=== PATIENT | male | born 1980 | race Caucasian/White ===

== ENCOUNTER 2017-11-15 13:15 | Emergency (ER) | payer OTHER ==
[2017-11-15] MEDS: ACETAMINOPHEN 500 MG TAB PO (16:01)
[2017-11-15] MEDS: CEFTRIAXONE 1 GM/50 ML (PMX) 50 ML IVPB (16:01)
[2017-11-15 16:07] LABS: ADD MAN DIFF? NO
[2017-11-15 16:12] LABS: ABNORMAL IP MESSAGE 1; BASOPHILS % 0.3 % (0.0-2.0); EOSINOPHILS % 0.1 % (0.0-7.0); HEMOGLOBIN 13.5 g/dl (14.0-18.0); LYMPHOCYTES # 0.5 10^3/ul (0.8-2.9); LYMPHOCYTES % 3.5 % (15.0-51.0); MEAN CORPUSCULAR HEMOGLOBIN 28.8 pg (29.0-33.0); MEAN CORPUSCULAR HGB CONC 33.8 g/dl (32.0-37.0); MEAN CORPUSCULAR VOLUME 85.3 fl (82.0-101.0); MEAN PLATELET VOLUME 9.6 fl (7.4-10.4); MONOCYTE # 0.6 10^3/ul (0.3-0.9); MONOCYTES % 4.6 % (0.0-11.0); NEUTROPHIL # 12.5 10^3/ul (1.6-7.5); NEUTROPHILS % 90.8 % (39.0-77.0); PLATELET COUNT 218 10^3/UL (140-415); POSITIVE DIFF @See below; RED BLOOD COUNT 4.69 10^6/ul (4.70-6.10); RED CELL DISTRIBUTION WIDTH 14.8 % (11.5-14.5)
[2017-11-15 16:12] LABS: WHITE BLOOD COUNT 13.8 10^3/ul (4.8-10.8)
[2017-11-15 16:31] LABS: ANION GAP 20 (8-16); BLOOD UREA NITROGEN 53 mg/dl (7-20); CALCIUM 8.6 mg/dl (8.4-10.2); CARBON DIOXIDE 26 mmol/L (21-31); CHLORIDE 91 mmol/L (97-110); CREATININE 7.04 mg/dl (0.61-1.24); GLUCOSE 86 mg/dl (70-220); SODIUM 133 mmol/L (135-144)
[2017-11-15] MEDS: TRIMETHOPRIM/SULFAMETHOX (DS) TAB PO (17:05)
[2017-11-15] MEDS: SOD CHLORIDE 0.9% 1,000 ML IV (17:06)
== END 2017-11-15 18:24 | disposition home or self-care (01) ==
LOC: FTE 13:15
DX: L03.116 Cellulitis of left lower limb (principal)
CPT/HCPCS: 36415; 80048; 85025; 87040; 96374; 99284-25

== ENCOUNTER 2017-12-14 20:08 | Inpatient (IN) | payer OTHER ==
[2017-12-14] MEDS: SOD CHLORIDE 0.9% 250 ML IV ×2 (21:58→23:39)
[2017-12-14 22:11] LABS: ADD MAN DIFF? NO
[2017-12-14 22:13] LABS: WHITE BLOOD COUNT 5.7 10^3/ul (4.8-10.8)
[2017-12-14 22:13] LABS: ABNORMAL IP MESSAGE 1; BASOPHILS % 0.5 % (0.0-2.0); EOSINOPHILS # 0.3 10^3/ul (0.0-0.5); EOSINOPHILS % 4.8 % (0.0-7.0); HEMATOCRIT 39.5 % (42.0-52.0); HEMOGLOBIN 12.8 g/dl (14.0-18.0); LYMPHOCYTES # 0.4 10^3/ul (0.8-2.9); LYMPHOCYTES % 7.2 % (15.0-51.0); MEAN CORPUSCULAR HEMOGLOBIN 28.8 pg (29.0-33.0); MEAN CORPUSCULAR HGB CONC 32.4 g/dl (32.0-37.0); MEAN CORPUSCULAR VOLUME 88.8 fl (82.0-101.0); MEAN PLATELET VOLUME 9.6 fl (7.4-10.4); MONOCYTE # 0.4 10^3/ul (0.3-0.9); MONOCYTES % 6.9 % (0.0-11.0); NEUTROPHIL # 4.5 10^3/ul (1.6-7.5); NEUTROPHILS % 80.2 % (39.0-77.0); PLATELET COUNT 228 10^3/UL (140-415); POSITIVE DIFF @See below; RED BLOOD COUNT 4.45 10^6/ul (4.70-6.10); RED CELL DISTRIBUTION WIDTH 15.9 % (11.5-14.5)
[2017-12-14 22:28] LABS: INR 1.21; PROTIME 15.5 Sec (11.9-14.9); PT RATIO 1.2
[2017-12-14 22:29] LABS: LACTIC ACID 1.6 mmol/L (0.5-2.0)
[2017-12-14 22:29] LABS: PARTIAL THROMBOPLASTIN TIME 38.4 Sec (25.0-35.0)
[2017-12-14 22:31] LABS: ALANINE AMINOTRANSFERASE 24 IU/L (13-69); ALBUMIN/GLOBULIN RATIO 1.25; ALKALINE PHOSPHATASE 271 IU/L (42-121); ANION GAP 17 (8-16); ASPARTATE AMINO TRANSFERASE 21 IU/L (15-46); BILIRUBIN,INDIRECT 0.1 mg/dl (0-1.1); BILIRUBIN,TOTAL 0.1 mg/dl (0.2-1.3); BLOOD UREA NITROGEN 38 mg/dl (7-20); CALCIUM 8.7 mg/dl (8.4-10.2); CARBON DIOXIDE 27 mmol/L (21-31); CHLORIDE 97 mmol/L (97-110); GLUCOSE 90 mg/dl (70-220); SODIUM 137 mmol/L (135-144); TOTAL PROTEIN 5.4 g/dl (6.1-8.1)
[2017-12-14 22:42] LABS: TROPONIN-I 0.031 ng/ml (0.00-0.12)
[2017-12-14] MEDS: CEFTRIAXONE 1 GM/50 ML (PMX) 50 ML IVPB (23:39)
[2017-12-15] MEDS ORDERED: NACL 0.9% 3 ML SYG IV
[2017-12-15] MEDS ORDERED: ONDANSETRON 4 MG INJ IV
[2017-12-15] MEDS ORDERED: ACETAMINOPHEN 325 MG TAB PO
[2017-12-15 00:14] LABS: LACTIC ACID 1.1 mmol/L (0.5-2.0)
[2017-12-15] MEDS: AZITHROMYCIN 500MG/NS (PMX) 250 ML IV (00:36)
[2017-12-15] MEDS: SOD CHLORIDE 0.9% 1,000 ML IV (00:36)
[2017-12-15 03:20] LABS: ADD MAN DIFF? NO
[2017-12-15 03:24] LABS: WHITE BLOOD COUNT 5.3 10^3/ul (4.8-10.8)
[2017-12-15 03:24] LABS: ABNORMAL IP MESSAGE 1; BASOPHILS % 0.7 % (0.0-2.0); EOSINOPHILS # 0.3 10^3/ul (0.0-0.5); EOSINOPHILS % 5.1 % (0.0-7.0); HEMOGLOBIN 12.3 g/dl (14.0-18.0); LYMPHOCYTES # 0.4 10^3/ul (0.8-2.9); LYMPHOCYTES % 7.3 % (15.0-51.0); MEAN CORPUSCULAR HEMOGLOBIN 28.8 pg (29.0-33.0); MEAN CORPUSCULAR HGB CONC 32.4 g/dl (32.0-37.0); MEAN PLATELET VOLUME 9.6 fl (7.4-10.4); MONOCYTE # 0.4 10^3/ul (0.3-0.9); MONOCYTES % 7.3 % (0.0-11.0); NEUTROPHIL # 4.2 10^3/ul (1.6-7.5); NEUTROPHILS % 79.2 % (39.0-77.0); PLATELET COUNT 214 10^3/UL (140-415); POSITIVE DIFF @See below; RED BLOOD COUNT 4.27 10^6/ul (4.70-6.10)
[2017-12-15 03:45] LABS: LACTIC ACID 1.2 mmol/L (0.5-2.0)
[2017-12-15 03:50] LABS: ALANINE AMINOTRANSFERASE 20 IU/L (13-69); ALBUMIN/GLOBULIN RATIO 1.15; ALKALINE PHOSPHATASE 262 IU/L (42-121); ANION GAP 21 (8-16); ASPARTATE AMINO TRANSFERASE 20 IU/L (15-46); BLOOD UREA NITROGEN 38 mg/dl (7-20); CALCIUM 8.4 mg/dl (8.4-10.2); CARBON DIOXIDE 21 mmol/L (21-31); CHLORIDE 101 mmol/L (97-110); CHOL/HDL RATIO 3.3 RATIO; CHOLESTEROL 114 mg/dl (100-200); CREATININE 6.39 mg/dl (0.61-1.24); GLUCOSE 110 mg/dl (70-220); HDL CHOLESTEROL 34 mg/dl (27-67); LDL CHOLESTEROL,CALCULATED 63 mg/dl; MAGNESIUM 2.2 mg/dl (1.7-2.5); POTASSIUM 3.9 mmol/L (3.5-5.1); SODIUM 139 mmol/L (135-144); TOTAL PROTEIN 5.6 g/dl (6.1-8.1); TRIGLYCERIDES 86 mg/dl (0-149)
[2017-12-15 04:04] LABS: HEMOGLOBIN A1C 5.4 % (0-5.9)
[2017-12-15] MEDS: PANTOPRAZOLE (EC) 40 MG TAB PO (06:14)
[2017-12-15] MEDS: PIPER-TAZO 2.25 GM (PMX) 50 ML IVPB (06:15)
[2017-12-15] MEDS: MULTIVIT/CA CARB/B CMPLX/FA TAB PO (08:27)
[2017-12-15] MEDS: ASPIRIN (EC) 81 MG TAB PO (08:27)
[2017-12-15] MEDS: SEVELAMER 800 MG TAB PO ×2 (12:09→17:58)
[2017-12-15] MEDS: ALBUMIN HUMAN 25% 100 ML IV (18:03)
[2017-12-15 19:50] LABS: HEPATITIS B SURFACE ANTIGEN NEGATIVE (NEGATIVE)
[2017-12-15] MEDS ORDERED: CEFTRIAXONE 1 GM/50 ML (PMX) 50 ML IVPB (22:00)
[2017-12-15] MEDS: ATORVASTATIN 40 MG TAB PO (22:54)
[2017-12-15] MEDS: CEFTRIAXONE 1 GM/50 ML (PMX) 50 ML IVPB (22:54)
[2017-12-15] MEDS: DOXYCYCLINE 100 MG TAB PO (22:54)
[2017-12-15] MEDS: CINACALCET 30 MG TAB PO (22:54)
[2017-12-15] MEDS ORDERED: AZITHROMYCIN 500MG/NS (PMX) 250 ML IVPB (23:00)
[2017-12-16] MEDS: PANTOPRAZOLE (EC) 40 MG TAB PO (06:36)
[2017-12-16 07:37] LABS: ADD MAN DIFF? NO
[2017-12-16 07:41] LABS: ABNORMAL IP MESSAGE 1; BASOPHILS % 0.6 % (0.0-2.0); EOSINOPHILS # 0.3 10^3/ul (0.0-0.5); EOSINOPHILS % 4.6 % (0.0-7.0); HEMATOCRIT 39.1 % (42.0-52.0); HEMOGLOBIN 12.6 g/dl (14.0-18.0); LYMPHOCYTES # 0.4 10^3/ul (0.8-2.9); MEAN CORPUSCULAR HEMOGLOBIN 28.8 pg (29.0-33.0); MEAN CORPUSCULAR HGB CONC 32.2 g/dl (32.0-37.0); MEAN CORPUSCULAR VOLUME 89.5 fl (82.0-101.0); MEAN PLATELET VOLUME 9.9 fl (7.4-10.4); MONOCYTE # 0.5 10^3/ul (0.3-0.9); MONOCYTES % 7.3 % (0.0-11.0); NEUTROPHIL # 5.6 10^3/ul (1.6-7.5); NEUTROPHILS % 81.2 % (39.0-77.0); PLATELET COUNT 232 10^3/UL (140-415); POSITIVE DIFF @See below; RED BLOOD COUNT 4.37 10^6/ul (4.70-6.10); RED CELL DISTRIBUTION WIDTH 16.4 % (11.5-14.5)
[2017-12-16 07:41] LABS: WHITE BLOOD COUNT 6.9 10^3/ul (4.8-10.8)
[2017-12-16 08:00] LABS: ANION GAP 17 (8-16); BLOOD UREA NITROGEN 31 mg/dl (7-20); CALCIUM 8.5 mg/dl (8.4-10.2); CARBON DIOXIDE 25 mmol/L (21-31); CHLORIDE 100 mmol/L (97-110); CREATININE 5.52 mg/dl (0.61-1.24); GLUCOSE 98 mg/dl (70-220); MAGNESIUM 2.1 mg/dl (1.7-2.5); POTASSIUM 4.2 mmol/L (3.5-5.1); SODIUM 138 mmol/L (135-144)
[2017-12-16] MEDS: SEVELAMER 800 MG TAB PO ×3 (08:00→18:01)
[2017-12-16 08:35] LABS: PHOSPHORUS 5.8 mg/dl (2.5-4.9)
[2017-12-16] MEDS: ASPIRIN 325 MG TAB PO (08:48)
[2017-12-16] MEDS: MULTIVIT/CA CARB/B CMPLX/FA TAB PO (08:48)
[2017-12-16] MEDS: DOXYCYCLINE 100 MG TAB PO ×2 (08:48→21:51)
[2017-12-16] MEDS: CEFTRIAXONE 1 GM/50 ML (PMX) 50 ML IVPB (21:51)
[2017-12-16] MEDS: CINACALCET 30 MG TAB PO (21:51)
[2017-12-16] MEDS: ATORVASTATIN 40 MG TAB PO (21:51)
[2017-12-16] MEDS: ACETAMINOPHEN 325 MG TAB PO (21:54)
[2017-12-17] MEDS: PANTOPRAZOLE (EC) 40 MG TAB PO (06:09)
[2017-12-17 06:48] LABS: ADD MAN DIFF? NO
[2017-12-17 06:52] LABS: WHITE BLOOD COUNT 6.2 10^3/ul (4.8-10.8)
[2017-12-17 06:52] LABS: ABNORMAL IP MESSAGE 1; BASOPHILS % 0.6 % (0.0-2.0); EOSINOPHILS # 0.4 10^3/ul (0.0-0.5); EOSINOPHILS % 5.8 % (0.0-7.0); HEMATOCRIT 39.9 % (42.0-52.0); HEMOGLOBIN 12.9 g/dl (14.0-18.0); LYMPHOCYTES # 0.5 10^3/ul (0.8-2.9); LYMPHOCYTES % 8.1 % (15.0-51.0); MEAN CORPUSCULAR HEMOGLOBIN 28.7 pg (29.0-33.0); MEAN CORPUSCULAR HGB CONC 32.3 g/dl (32.0-37.0); MEAN CORPUSCULAR VOLUME 88.9 fl (82.0-101.0); MEAN PLATELET VOLUME 9.4 fl (7.4-10.4); MONOCYTE # 0.5 10^3/ul (0.3-0.9); MONOCYTES % 7.8 % (0.0-11.0); NEUTROPHIL # 4.8 10^3/ul (1.6-7.5); NEUTROPHILS % 77.4 % (39.0-77.0); PLATELET COUNT 205 10^3/UL (140-415); POSITIVE DIFF @See below; RED BLOOD COUNT 4.49 10^6/ul (4.70-6.10); RED CELL DISTRIBUTION WIDTH 16.5 % (11.5-14.5)
[2017-12-17 07:12] LABS: PHOSPHORUS 4.9 mg/dl (2.5-4.9)
[2017-12-17 07:17] LABS: ANION GAP 15 (8-16); BLOOD UREA NITROGEN 27 mg/dl (7-20); CALCIUM 8.4 mg/dl (8.4-10.2); CARBON DIOXIDE 27 mmol/L (21-31); CHLORIDE 99 mmol/L (97-110); CREATININE 4.91 mg/dl (0.61-1.24); GLUCOSE 91 mg/dl (70-220); MAGNESIUM 2.1 mg/dl (1.7-2.5); POTASSIUM 4.1 mmol/L (3.5-5.1); SODIUM 137 mmol/L (135-144)
[2017-12-17] MEDS: DOXYCYCLINE 100 MG TAB PO ×2 (09:05→21:17)
[2017-12-17] MEDS: MULTIVIT/CA CARB/B CMPLX/FA TAB PO (09:05)
[2017-12-17] MEDS: ASPIRIN 325 MG TAB PO (09:05)
[2017-12-17] MEDS: SEVELAMER 800 MG TAB PO ×3 (09:05→17:21)
[2017-12-17] MEDS: ATORVASTATIN 40 MG TAB PO (21:16)
[2017-12-17] MEDS: CINACALCET 30 MG TAB PO (21:17)
[2017-12-17] MEDS: CEFTRIAXONE 1 GM/50 ML (PMX) 50 ML IVPB (22:19)
[2017-12-18] MEDS: PANTOPRAZOLE (EC) 40 MG TAB PO (06:09)
[2017-12-18 07:08] LABS: PHOSPHORUS 5.7 mg/dl (2.5-4.9)
[2017-12-18] MEDS: ASPIRIN 325 MG TAB PO (08:37)
[2017-12-18] MEDS: MULTIVIT/CA CARB/B CMPLX/FA TAB PO (08:37)
[2017-12-18] MEDS: DOXYCYCLINE 100 MG TAB PO ×2 (08:37→21:32)
[2017-12-18] MEDS: SEVELAMER 800 MG TAB PO ×3 (08:37→16:28)
[2017-12-18] MEDS: DIGOXIN 500 MCG INJ IV (16:28)
[2017-12-18 19:10] LABS: CREATINE KINASE 91 IU/L (23-200)
[2017-12-18 19:23] LABS: CK INDEX 5.7
[2017-12-18 19:26] LABS: TROPONIN-I < 0.012 ng/ml (0.00-0.12)
[2017-12-18] MEDS: ATORVASTATIN 40 MG TAB PO (21:32)
[2017-12-18] MEDS: CINACALCET 30 MG TAB PO (21:32)
[2017-12-18] MEDS: AL HYDROX/MG HYDROX/SIMETH 30 ML CUP PO (21:36)
[2017-12-18] MEDS: CEFTRIAXONE 1 GM/50 ML (PMX) 50 ML IVPB (23:44)
[2017-12-19 01:09] LABS: CREATINE KINASE 84 IU/L (23-200)
[2017-12-19 01:23] LABS: CK INDEX 5.6; TROPONIN-I 0.016 ng/ml (0.00-0.12)
[2017-12-19 01:24] LABS: CK-MB 4.69 ng/ml (0.0-2.4)
[2017-12-19] MEDS: PANTOPRAZOLE (EC) 40 MG TAB PO (06:23)
[2017-12-19 07:33] LABS: CHOLESTEROL 86 mg/dl (100-200)
[2017-12-19 07:33] LABS: CHOL/HDL RATIO 2.3 RATIO; HDL CHOLESTEROL 36 mg/dl (27-67); LDL CHOLESTEROL,CALCULATED 39 mg/dl; TRIGLYCERIDES 56 mg/dl (0-149)
[2017-12-19 07:34] LABS: PHOSPHORUS 5.5 mg/dl (2.5-4.9)
[2017-12-19] MEDS: SEVELAMER 800 MG TAB PO ×3 (07:47→17:49)
[2017-12-19] MEDS: ASPIRIN 325 MG TAB PO (09:00)
[2017-12-19] MEDS: MULTIVIT/CA CARB/B CMPLX/FA TAB PO (09:00)
[2017-12-19] MEDS: DOXYCYCLINE 100 MG TAB PO ×2 (09:00→20:09)
[2017-12-19] MEDS: LISINOPRIL 5 MG TAB PO (09:00)
[2017-12-19] MEDS: REGADENOSON 0.4 MG/5 ML SYG ×2 (11:03→11:25)
[2017-12-19] MEDS: ATORVASTATIN 40 MG TAB PO (20:09)
[2017-12-19] MEDS: AL HYDROX/MG HYDROX/SIMETH 30 ML CUP PO (20:09)
[2017-12-19] MEDS: CINACALCET 30 MG TAB PO (20:09)
[2017-12-19] MEDS: CEFTRIAXONE 1 GM/50 ML (PMX) 50 ML IVPB (23:23)
[2017-12-20] MEDS: PANTOPRAZOLE (EC) 40 MG TAB PO (06:31)
[2017-12-20] MEDS: ASPIRIN 325 MG TAB PO (08:07)
[2017-12-20] MEDS: SEVELAMER 800 MG TAB PO (08:07)
[2017-12-20] MEDS: DOXYCYCLINE 100 MG TAB PO (08:07)
[2017-12-20] MEDS: MULTIVIT/CA CARB/B CMPLX/FA TAB PO (08:08)
[2017-12-20] MEDS: LISINOPRIL 5 MG TAB PO (08:08)
[2017-12-20 08:21] LABS: ADD MAN DIFF? NO
[2017-12-20 08:29] LABS: WHITE BLOOD COUNT 6.7 10^3/ul (4.8-10.8)
[2017-12-20 08:30] LABS: ABNORMAL IP MESSAGE 1; BASOPHILS % 0.4 % (0.0-2.0); EOSINOPHILS # 0.3 10^3/ul (0.0-0.5); EOSINOPHILS % 4.3 % (0.0-7.0); HEMATOCRIT 41.1 % (42.0-52.0); HEMOGLOBIN 13.2 g/dl (14.0-18.0); LYMPHOCYTES # 0.5 10^3/ul (0.8-2.9); LYMPHOCYTES % 7.6 % (15.0-51.0); MEAN CORPUSCULAR HEMOGLOBIN 28.3 pg (29.0-33.0); MEAN CORPUSCULAR HGB CONC 32.1 g/dl (32.0-37.0); MEAN CORPUSCULAR VOLUME 88.2 fl (82.0-101.0); MEAN PLATELET VOLUME 10.2 fl (7.4-10.4); MONOCYTE # 0.5 10^3/ul (0.3-0.9); MONOCYTES % 7.3 % (0.0-11.0); NEUTROPHIL # 5.4 10^3/ul (1.6-7.5); NEUTROPHILS % 80.3 % (39.0-77.0); PLATELET COUNT 190 10^3/UL (140-415); POSITIVE DIFF @See below; RED BLOOD COUNT 4.66 10^6/ul (4.70-6.10); RED CELL DISTRIBUTION WIDTH 16.3 % (11.5-14.5)
[2017-12-20 08:46] LABS: ANION GAP 22 (8-16); BLOOD UREA NITROGEN 42 mg/dl (7-20); CALCIUM 7.9 mg/dl (8.4-10.2); CARBON DIOXIDE 23 mmol/L (21-31); CHLORIDE 96 mmol/L (97-110); GLUCOSE 83 mg/dl (70-220); POTASSIUM 4.7 mmol/L (3.5-5.1); SODIUM 136 mmol/L (135-144)
[2017-12-20 08:50] LABS: PHOSPHORUS 5.2 mg/dl (2.5-4.9)
== END 2017-12-20 12:18 | disposition home or self-care (01) | DRG 193 ==
LOC: TEL 23:51 → E/R 20:08
PROC: 5A1D70Z Performance of Urinary Filtration, Intermittent, Less than 6 Hours Per Day (ICD-10-PCS; 2017-12-15)
PROC: 5A1D70Z Performance of Urinary Filtration, Intermittent, Less than 6 Hours Per Day (ICD-10-PCS; principal; 2017-12-18)
DX: J18.9 Pneumonia, unspecified organism (principal); N18.6 End stage renal disease; I12.0 Hypertensive chronic kidney disease with stage 5 chronic kidney disease or end stage renal disease; I42.9 Cardiomyopathy, unspecified; I95.9 Hypotension, unspecified; I48.91 Unspecified atrial fibrillation; Y95 Nosocomial condition; D64.9 Anemia, unspecified; R07.89 Other chest pain; Z99.2 Dependence on renal dialysis; Z79.82 Long term (current) use of aspirin
CPT/HCPCS: 36415; 71045; 71046; 78452; 80048; 80053; 80061; 82550; 82553; 83036; 83605; 83735; 84100; 84443; 84484; 85025; 85610; 85730; 86403; 87040; 87081; 87275; 87276; 87279; 87280; 87340; 90935; 93005; 93017; 93306; 96361; 96374; 96375; 99285-25

== ENCOUNTER 2018-05-20 13:42 | Inpatient (IN) | payer OTHER ==
[2018-05-20 14:21] LABS: ADD MAN DIFF? NO
[2018-05-20] MEDS: SOD CHLORIDE 0.9% 500 ML IV (14:21)
[2018-05-20 14:22] LABS: WHITE BLOOD COUNT 5.5 10^3/ul (4.8-10.8)
[2018-05-20 14:22] LABS: ABNORMAL IP MESSAGE 1; BASOPHILS % 0.5 % (0.0-2.0); EOSINOPHILS # 0.4 10^3/ul (0.0-0.5); EOSINOPHILS % 6.3 % (0.0-7.0); HEMATOCRIT 38.8 % (42.0-52.0); HEMOGLOBIN 12.9 g/dl (14.0-18.0); LYMPHOCYTES # 0.4 10^3/ul (0.8-2.9); LYMPHOCYTES % 6.7 % (15.0-51.0); MEAN CORPUSCULAR HEMOGLOBIN 29.9 pg (29.0-33.0); MEAN CORPUSCULAR HGB CONC 33.2 g/dl (32.0-37.0); MEAN CORPUSCULAR VOLUME 89.8 fl (82.0-101.0); MEAN PLATELET VOLUME 10.2 fl (7.4-10.4); MONOCYTE # 0.3 10^3/ul (0.3-0.9); MONOCYTES % 5.6 % (0.0-11.0); NEUTROPHIL # 4.4 10^3/ul (1.6-7.5); NEUTROPHILS % 80.5 % (39.0-77.0); PLATELET COUNT 286 10^3/UL (140-415); POSITIVE DIFF @See below; RED BLOOD COUNT 4.32 10^6/ul (4.70-6.10); RED CELL DISTRIBUTION WIDTH 14.6 % (11.5-14.5)
[2018-05-20] MEDS: SODIUM CHLORIDE 0.9% 1L BAG IV* (14:35)
[2018-05-20] MEDS: CEFEPIME 2GM/50 ML (PMX) 50 ML IVPB (14:37)
[2018-05-20 14:54] LABS: ANION GAP 19 (8-16); BLOOD UREA NITROGEN 51 mg/dl (7-20); CALCIUM 8.3 mg/dl (8.4-10.2); CARBON DIOXIDE 21 mmol/L (21-31); CHLORIDE 94 mmol/L (97-110); CREATININE 8.42 mg/dl (0.61-1.24); GLUCOSE 93 mg/dl (70-220); POTASSIUM 4.9 mmol/L (3.5-5.1); SODIUM 129 mmol/L (135-144)
[2018-05-20] MEDS ORDERED: NORepinephrine 8MG/250 ML (PMX 250 ML (15:15)
[2018-05-20] MEDS: VANCOMYCIN 1 GM (PMX) 250 ML IVPB (15:26)
[2018-05-20 15:45] LABS: PARTIAL THROMBOPLASTIN TIME 36.5 Sec (25.0-35.0)
[2018-05-20] MEDS: NORepinephrine 8MG/250 ML (PMX 250 ML IV (16:02)
[2018-05-20 17:12] LABS: LACTIC ACID 0.7 mmol/L (0.5-2.0)
[2018-05-20 17:12] LABS: ALANINE AMINOTRANSFERASE 27 IU/L (13-69); ALBUMIN 2.8 g/dl (3.3-4.9); ALKALINE PHOSPHATASE 291 IU/L (42-121); ASPARTATE AMINO TRANSFERASE 16 IU/L (15-46); BILIRUBIN,INDIRECT 0.1 mg/dl (0-1.1); BILIRUBIN,TOTAL 0.1 mg/dl (0.2-1.3); LIPASE 86 U/L (23-300); TOTAL PROTEIN 5.5 g/dl (6.1-8.1)
[2018-05-20] MEDS ORDERED: NACL 0.9% 3 ML SYG IV (19:00)
[2018-05-20 19:14] LABS: INR 1.27; PROTIME 16.1 Sec (11.9-14.9); PT RATIO 1.3
[2018-05-20 19:15] LABS: PARTIAL THROMBOPLASTIN TIME 36.1 Sec (25.0-35.0)
[2018-05-20 19:24] LABS: FREE T4 (FREE THYROXINE) 1.49 ng/dl (0.64-1.79)
[2018-05-20 19:52] LABS: B-TYPE NATRIURETIC PEPTIDE 106000 PG/ML (0-125)
[2018-05-20] MEDS ORDERED: PHENYLephrine 20MG IN 250 ML 250 ML IV (21:00)
[2018-05-20] MEDS: DOPamine-D5W 1.6 MG/ML 250 ML IV (21:23)
[2018-05-20] MEDS: CINACALCET 30 MG TAB PO (21:29)
[2018-05-20] MEDS: ATORVASTATIN 40 MG TAB PO (21:29)
[2018-05-21] MEDS: ONDANSETRON 4 MG INJ IV (00:04)
[2018-05-21] MEDS: morphine 4 MG/ML VIAL IV (00:05)
[2018-05-21] MEDS: NORepinephrine 8MG/250 ML (PMX 250 ML IV ×2 (00:51→11:54)
[2018-05-21 05:44] LABS: ADD MAN DIFF? NO
[2018-05-21 05:50] LABS: BASOPHILS % 0.6 % (0.0-2.0); EOSINOPHILS # 0.2 10^3/ul (0.0-0.5); EOSINOPHILS % 3.1 % (0.0-7.0); HEMATOCRIT 43.7 % (42.0-52.0); HEMOGLOBIN 14.3 g/dl (14.0-18.0); LYMPHOCYTES # 0.7 10^3/ul (0.8-2.9); LYMPHOCYTES % 9.6 % (15.0-51.0); MEAN CORPUSCULAR HEMOGLOBIN 29.9 pg (29.0-33.0); MEAN CORPUSCULAR HGB CONC 32.7 g/dl (32.0-37.0); MEAN CORPUSCULAR VOLUME 91.2 fl (82.0-101.0); MEAN PLATELET VOLUME 9.9 fl (7.4-10.4); MONOCYTE # 0.5 10^3/ul (0.3-0.9); MONOCYTES % 6.4 % (0.0-11.0); NEUTROPHIL # 5.7 10^3/ul (1.6-7.5); NEUTROPHILS % 79.9 % (39.0-77.0); NUCLEATED RED BLOOD CELLS% 0.3 /100WBC (0.0-0.0); PLATELET COUNT 377 10^3/UL (140-415); RED BLOOD COUNT 4.79 10^6/ul (4.70-6.10); RED CELL DISTRIBUTION WIDTH 15.2 % (11.5-14.5)
[2018-05-21 05:50] LABS: WHITE BLOOD COUNT 7.2 10^3/ul (4.8-10.8)
[2018-05-21 06:17] LABS: HEMOGLOBIN A1C 5.7 % (0-5.9)
[2018-05-21 06:22] LABS: ALBUMIN 3.3 g/dl (3.3-4.9); ALBUMIN/GLOBULIN RATIO 1.26; ALKALINE PHOSPHATASE 288 IU/L (42-121); ANION GAP 22 (8-16); ASPARTATE AMINO TRANSFERASE 15 IU/L (15-46); BILIRUBIN,INDIRECT 0.2 mg/dl (0-1.1); BILIRUBIN,TOTAL 0.2 mg/dl (0.2-1.3); BLOOD UREA NITROGEN 57 mg/dl (7-20); CALCIUM 8.8 mg/dl (8.4-10.2); CARBON DIOXIDE 17 mmol/L (21-31); CHLORIDE 97 mmol/L (97-110); CHOL/HDL RATIO 3.9 RATIO; CHOLESTEROL 118 mg/dl (100-200); CREATININE 8.75 mg/dl (0.61-1.24); GLUCOSE 109 mg/dl (70-220); HDL CHOLESTEROL 30 mg/dl (27-67); LDL CHOLESTEROL,CALCULATED 70 mg/dl; MAGNESIUM 2.2 mg/dl (1.7-2.5); PHOSPHORUS 8.4 mg/dl (2.5-4.9); SODIUM 130 mmol/L (135-144); TOTAL PROTEIN 5.9 g/dl (6.1-8.1); TRIGLYCERIDES 88 mg/dl (0-149)
[2018-05-21 06:28] LABS: POTASSIUM 6.2 mmol/L (3.5-5.1)
[2018-05-21] MEDS: NA POLYST SULFON 15 GM/60 ML BTL PO (07:07)
[2018-05-21] MEDS: PANTOPRAZOLE (EC) 40 MG TAB PO (07:07)
[2018-05-21 07:25] LABS: ALANINE AMINOTRANSFERASE 29 IU/L (13-69)
[2018-05-21] MEDS: SEVELAMER CARBONATE 800 MG TABLET PO ×3 (08:00→17:47)
[2018-05-21] MEDS: ASPIRIN (EC) 325 MG TAB PO (09:00)
[2018-05-21] MEDS ORDERED: NON-FORMULARY/PATIENT OWN MED (Omeprazole* 20 MG) PO (09:00)
[2018-05-21] MEDS ORDERED: ASPIRIN 325 MG PO (09:00)
[2018-05-21] MEDS ORDERED: DOBUTamine/D5W 1 MG/ML DRIP 250 ML IV (09:00)
[2018-05-21] MEDS ORDERED: PHENYLephrine 40 MG in DEXTROSE 5% 496 ML IV (10:30)
[2018-05-21] MEDS: VITAMIN B COMPLEX/VIT C CAP PO (11:21)
[2018-05-21] MEDS: HEPARIN 5,000 UNIT/0.5 ML VIAL SC ×2 (11:23→21:38)
[2018-05-21 12:41] LABS: HEPATITIS B SURFACE ANTIGEN NEGATIVE (NEGATIVE)
[2018-05-21 12:59] LABS: HEPATITIS B SURFACE ANTIBODY POSITIVE (NEGATIVE)
[2018-05-21] MEDS: ALBUMIN HUMAN 25% 100 ML IV (15:14)
[2018-05-21 19:36] LABS: TROPONIN-I 0.038 ng/ml (0.000-0.120)
[2018-05-21] MEDS: CINACALCET 30 MG TAB PO (21:37)
[2018-05-21] MEDS: ACETAMINOPHEN 325 MG TAB PO (21:37)
[2018-05-21] MEDS: ATORVASTATIN 40 MG TAB PO (21:37)
[2018-05-21] MEDS: ZOLPIDEM 5 MG TAB PO (21:46)
[2018-05-22 01:10] LABS: TROPONIN-I 0.048 ng/ml (0.000-0.120)
[2018-05-22] MEDS: PANTOPRAZOLE (EC) 40 MG TAB PO (05:48)
[2018-05-22 06:20] LABS: TROPONIN-I 0.048 ng/ml (0.000-0.120)
[2018-05-22] MEDS: SEVELAMER CARBONATE 800 MG TABLET PO ×3 (08:26→19:50)
[2018-05-22] MEDS: HEPARIN 5,000 UNIT/0.5 ML VIAL SC ×2 (08:27→20:43)
[2018-05-22] MEDS: ASPIRIN (EC) 325 MG TAB PO (08:29)
[2018-05-22] MEDS: VITAMIN B COMPLEX/VIT C CAP PO (08:29)
[2018-05-22 08:43] LABS: ADD MAN DIFF? NO
[2018-05-22 08:48] LABS: WHITE BLOOD COUNT 5.5 10^3/ul (4.8-10.8)
[2018-05-22 08:48] LABS: ABNORMAL IP MESSAGE 1; BASOPHIL # 0.1 10^3/ul (0.0-0.1); BASOPHILS % 0.9 % (0.0-2.0); EOSINOPHILS # 0.3 10^3/ul (0.0-0.5); EOSINOPHILS % 5.7 % (0.0-7.0); HEMATOCRIT 37.7 % (42.0-52.0); HEMOGLOBIN 12.4 g/dl (14.0-18.0); LYMPHOCYTES # 0.3 10^3/ul (0.8-2.9); MEAN CORPUSCULAR HGB CONC 32.9 g/dl (32.0-37.0); MEAN CORPUSCULAR VOLUME 91.3 fl (82.0-101.0); MEAN PLATELET VOLUME 9.6 fl (7.4-10.4); MONOCYTE # 0.4 10^3/ul (0.3-0.9); MONOCYTES % 6.6 % (0.0-11.0); NEUTROPHIL # 4.4 10^3/ul (1.6-7.5); NEUTROPHILS % 80.4 % (39.0-77.0); PLATELET COUNT 198 10^3/UL (140-415); POSITIVE DIFF @See below; RED BLOOD COUNT 4.13 10^6/ul (4.70-6.10); RED CELL DISTRIBUTION WIDTH 15.5 % (11.5-14.5)
[2018-05-22 09:06] LABS: ALANINE AMINOTRANSFERASE 26 IU/L (13-69); ALBUMIN 2.5 g/dl (3.3-4.9); ALBUMIN/GLOBULIN RATIO 0.96; ALKALINE PHOSPHATASE 236 IU/L (42-121); ANION GAP 18 (8-16); ASPARTATE AMINO TRANSFERASE 12 IU/L (15-46); BILIRUBIN,INDIRECT 0.2 mg/dl (0-1.1); BILIRUBIN,TOTAL 0.2 mg/dl (0.2-1.3); BLOOD UREA NITROGEN 50 mg/dl (7-20); CALCIUM 7.9 mg/dl (8.4-10.2); CARBON DIOXIDE 26 mmol/L (21-31); CHLORIDE 93 mmol/L (97-110); CREATININE 7.56 mg/dl (0.61-1.24); GLUCOSE 80 mg/dl (70-220); SODIUM 133 mmol/L (135-144); TOTAL PROTEIN 5.1 g/dl (6.1-8.1)
[2018-05-22 12:39] LABS: TROPONIN-I 0.037 ng/ml (0.000-0.120)
[2018-05-22] MEDS: ACETAMINOPHEN 325 MG TAB PO (16:39)
[2018-05-22 19:06] LABS: TROPONIN-I 0.031 ng/ml (0.000-0.120)
[2018-05-22] MEDS: CINACALCET 30 MG TAB PO (20:42)
[2018-05-22] MEDS: ATORVASTATIN 40 MG TAB PO (20:42)
[2018-05-22] MEDS: ZOLPIDEM 5 MG TAB PO (20:45)
[2018-05-23] MEDS: ACETAMINOPHEN 325 MG TAB PO ×2 (05:17→20:15)
[2018-05-23] MEDS: PANTOPRAZOLE (EC) 40 MG TAB PO (05:17)
[2018-05-23 07:23] LABS: ADD MAN DIFF? NO
[2018-05-23 07:27] LABS: ABNORMAL IP MESSAGE 1; BASOPHILS % 0.7 % (0.0-2.0); EOSINOPHILS # 0.4 10^3/ul (0.0-0.5); EOSINOPHILS % 6.5 % (0.0-7.0); HEMATOCRIT 37.7 % (42.0-52.0); HEMOGLOBIN 12.5 g/dl (14.0-18.0); LYMPHOCYTES # 0.5 10^3/ul (0.8-2.9); LYMPHOCYTES % 8.1 % (15.0-51.0); MEAN CORPUSCULAR HEMOGLOBIN 29.9 pg (29.0-33.0); MEAN CORPUSCULAR HGB CONC 33.2 g/dl (32.0-37.0); MEAN CORPUSCULAR VOLUME 90.2 fl (82.0-101.0); MEAN PLATELET VOLUME 10.2 fl (7.4-10.4); MONOCYTE # 0.4 10^3/ul (0.3-0.9); MONOCYTES % 7.1 % (0.0-11.0); NEUTROPHIL # 4.6 10^3/ul (1.6-7.5); NEUTROPHILS % 77.3 % (39.0-77.0); PLATELET COUNT 213 10^3/UL (140-415); POSITIVE DIFF @See below; RED BLOOD COUNT 4.18 10^6/ul (4.70-6.10); RED CELL DISTRIBUTION WIDTH 15.2 % (11.5-14.5)
[2018-05-23 07:27] LABS: WHITE BLOOD COUNT 5.9 10^3/ul (4.8-10.8)
[2018-05-23 07:46] LABS: ANION GAP 18 (8-16); BLOOD UREA NITROGEN 62 mg/dl (7-20); CALCIUM 7.9 mg/dl (8.4-10.2); CARBON DIOXIDE 24 mmol/L (21-31); CHLORIDE 92 mmol/L (97-110); GLUCOSE 84 mg/dl (70-220); POTASSIUM 4.4 mmol/L (3.5-5.1); SODIUM 130 mmol/L (135-144)
[2018-05-23] MEDS: SEVELAMER CARBONATE 800 MG TABLET PO ×3 (08:06→18:15)
[2018-05-23] MEDS: ASPIRIN (EC) 325 MG TAB PO (08:26)
[2018-05-23] MEDS: VITAMIN B COMPLEX/VIT C CAP PO (08:27)
[2018-05-23] MEDS: HEPARIN 5,000 UNIT/0.5 ML VIAL SC ×2 (08:39→20:16)
[2018-05-23] MEDS: CINACALCET 30 MG TAB PO (20:15)
[2018-05-23] MEDS: ATORVASTATIN 40 MG TAB PO (20:16)
[2018-05-24] MEDS: PANTOPRAZOLE (EC) 40 MG TAB PO (06:33)
[2018-05-24 06:47] LABS: ADD MAN DIFF? NO
[2018-05-24 06:48] LABS: ABNORMAL IP MESSAGE 1; BASOPHILS % 0.6 % (0.0-2.0); EOSINOPHILS # 0.4 10^3/ul (0.0-0.5); EOSINOPHILS % 5.3 % (0.0-7.0); HEMATOCRIT 37.1 % (42.0-52.0); HEMOGLOBIN 12.2 g/dl (14.0-18.0); LYMPHOCYTES # 0.5 10^3/ul (0.8-2.9); LYMPHOCYTES % 7.2 % (15.0-51.0); MEAN CORPUSCULAR HEMOGLOBIN 29.8 pg (29.0-33.0); MEAN CORPUSCULAR HGB CONC 32.9 g/dl (32.0-37.0); MEAN CORPUSCULAR VOLUME 90.5 fl (82.0-101.0); MONOCYTE # 0.4 10^3/ul (0.3-0.9); MONOCYTES % 6.7 % (0.0-11.0); NEUTROPHIL # 5.2 10^3/ul (1.6-7.5); NEUTROPHILS % 79.9 % (39.0-77.0); PLATELET COUNT 196 10^3/UL (140-415); POSITIVE DIFF @See below; RED CELL DISTRIBUTION WIDTH 15.3 % (11.5-14.5)
[2018-05-24 06:48] LABS: WHITE BLOOD COUNT 6.6 10^3/ul (4.8-10.8)
[2018-05-24 07:12] LABS: PHOSPHORUS 5.2 mg/dl (2.5-4.9)
[2018-05-24 07:12] LABS: MAGNESIUM 1.8 mg/dl (1.7-2.5)
[2018-05-24 07:46] LABS: ANION GAP 18 (8-16); BLOOD UREA NITROGEN 46 mg/dl (7-20); CARBON DIOXIDE 24 mmol/L (21-31); CHLORIDE 92 mmol/L (97-110); GLUCOSE 91 mg/dl (70-220); POTASSIUM 4.2 mmol/L (3.5-5.1); SODIUM 130 mmol/L (135-144)
[2018-05-24] MEDS: ASPIRIN (EC) 325 MG TAB PO (08:18)
[2018-05-24] MEDS: SEVELAMER CARBONATE 800 MG TABLET PO ×3 (08:18→17:32)
[2018-05-24] MEDS: VITAMIN B COMPLEX/VIT C CAP PO (08:19)
[2018-05-24] MEDS: HEPARIN 5,000 UNIT/0.5 ML VIAL SC ×2 (08:22→20:14)
[2018-05-24] MEDS ORDERED: ZOLPIDEM 5 MG TAB PO (12:30)
[2018-05-24] MEDS: ATORVASTATIN 40 MG TAB PO (20:11)
[2018-05-24] MEDS: CINACALCET 30 MG TAB PO (20:12)
[2018-05-25] MEDS: PANTOPRAZOLE (EC) 40 MG TAB PO (05:16)
[2018-05-25 06:11] LABS: ADD MAN DIFF? NO
[2018-05-25 06:13] LABS: WHITE BLOOD COUNT 7.1 10^3/ul (4.8-10.8)
[2018-05-25 06:13] LABS: ABNORMAL IP MESSAGE 1; BASOPHILS % 0.4 % (0.0-2.0); EOSINOPHILS # 0.4 10^3/ul (0.0-0.5); EOSINOPHILS % 5.5 % (0.0-7.0); HEMOGLOBIN 12.7 g/dl (14.0-18.0); LYMPHOCYTES # 0.4 10^3/ul (0.8-2.9); LYMPHOCYTES % 6.1 % (15.0-51.0); MEAN CORPUSCULAR HEMOGLOBIN 30.3 pg (29.0-33.0); MEAN CORPUSCULAR HGB CONC 33.4 g/dl (32.0-37.0); MEAN CORPUSCULAR VOLUME 90.7 fl (82.0-101.0); MEAN PLATELET VOLUME 9.9 fl (7.4-10.4); MONOCYTE # 0.4 10^3/ul (0.3-0.9); MONOCYTES % 6.1 % (0.0-11.0); NEUTROPHIL # 5.7 10^3/ul (1.6-7.5); NEUTROPHILS % 81.5 % (39.0-77.0); PLATELET COUNT 201 10^3/UL (140-415); POSITIVE DIFF @See below; RED BLOOD COUNT 4.19 10^6/ul (4.70-6.10); RED CELL DISTRIBUTION WIDTH 15.3 % (11.5-14.5)
[2018-05-25 07:07] LABS: ANION GAP 19 (8-16); CALCIUM 8.2 mg/dl (8.4-10.2); CARBON DIOXIDE 22 mmol/L (21-31); CHLORIDE 92 mmol/L (97-110); CREATININE 8.18 mg/dl (0.61-1.24); GLUCOSE 106 mg/dl (70-220); POTASSIUM 4.2 mmol/L (3.5-5.1); SODIUM 129 mmol/L (135-144)
[2018-05-25] MEDS: SEVELAMER CARBONATE 800 MG TABLET PO ×3 (07:33→17:10)
[2018-05-25 07:51] LABS: BLOOD UREA NITROGEN 60 mg/dl (7-20)
[2018-05-25] MEDS: VITAMIN B COMPLEX/VIT C CAP PO (08:17)
[2018-05-25] MEDS: LISINOPRIL 5 MG TAB PO (08:17)
[2018-05-25] MEDS: ASPIRIN (EC) 325 MG TAB PO (08:17)
[2018-05-25] MEDS: HEPARIN 5,000 UNIT/0.5 ML VIAL SC (08:18)
== END 2018-05-25 19:45 | disposition home or self-care (01) | DRG 291 ==
LOC: TEL 05-23 03:04 → ICU 17:03 → E/R 13:42 → ICU 05-21 08:51
PROC: 5A1D70Z Performance of Urinary Filtration, Intermittent, Less than 6 Hours Per Day (ICD-10-PCS; principal; 2018-05-21)
DX: R57.0 Cardiogenic shock (principal); N18.6 End stage renal disease; I50.23 Acute on chronic systolic (congestive) heart failure; I13.2 Hypertensive heart and chronic kidney disease with heart failure and with stage 5 chronic kidney disease, or end stage renal disease; E87.1 Hypo-osmolality and hyponatremia; R18.8 Other ascites; Z99.2 Dependence on renal dialysis; R51 Headache; E87.5 Hyperkalemia; R07.89 Other chest pain
CPT/HCPCS: 36415; 71045; 74176; 80048; 80053; 80061; 80076; 82533; 82962; 83036; 83605; 83690; 83735; 83880; 84100; 84439; 84443; 84484; 85025; 85610; 85730; 86706; 87040; 87081; 87340; 90935; 93005; 93306; 96374; 96375; 97162; 99291-25

== ENCOUNTER 2018-09-24 09:52 | Inpatient (IN) | payer OTHER ==
[2018-09-24] MEDS ORDERED: DILTIAZEM-D5W 125MG/125ML DRIP 125 ML IV (11:00)
[2018-09-24 11:03] LABS: ADD MAN DIFF? NO
[2018-09-24 11:04] LABS: WHITE BLOOD COUNT 6.4 10^3/ul (4.8-10.8)
[2018-09-24 11:04] LABS: ABNORMAL IP MESSAGE 1; BASOPHILS % 0.6 % (0.0-2.0); EOSINOPHILS # 0.2 10^3/ul (0.0-0.5); EOSINOPHILS % 2.3 % (0.0-7.0); HEMATOCRIT 38.9 % (42.0-52.0); HEMOGLOBIN 12.7 g/dl (14.0-18.0); LYMPHOCYTES # 0.4 10^3/ul (0.8-2.9); LYMPHOCYTES % 6.1 % (15.0-51.0); MEAN CORPUSCULAR HEMOGLOBIN 28.8 pg (29.0-33.0); MEAN CORPUSCULAR HGB CONC 32.6 g/dl (32.0-37.0); MEAN CORPUSCULAR VOLUME 88.2 fl (82.0-101.0); MEAN PLATELET VOLUME 10.6 fl (7.4-10.4); MONOCYTE # 0.5 10^3/ul (0.3-0.9); MONOCYTES % 7.3 % (0.0-11.0); NEUTROPHIL # 5.3 10^3/ul (1.6-7.5); NEUTROPHILS % 83.1 % (39.0-77.0); PLATELET COUNT 281 10^3/UL (140-415); POSITIVE DIFF @See below; RED BLOOD COUNT 4.41 10^6/ul (4.70-6.10); RED CELL DISTRIBUTION WIDTH 15.8 % (11.5-14.5)
[2018-09-24] MEDS: DILTIAZEM 25 MG INJ IV (11:12)
[2018-09-24] MEDS: ENOXAPARIN 80 MG/0.8 ML SYG SC (11:22)
[2018-09-24 11:24] LABS: ALANINE AMINOTRANSFERASE 23 IU/L (13-69); ALBUMIN 2.9 g/dl (3.3-4.9); ALBUMIN/GLOBULIN RATIO 0.96; ALKALINE PHOSPHATASE 484 IU/L (42-121); ANION GAP 17 (5-13); ASPARTATE AMINO TRANSFERASE 29 IU/L (15-46); BILIRUBIN,TOTAL 0.1 mg/dl (0.2-1.3); BLOOD UREA NITROGEN 49 mg/dl (7-20); CALCIUM 9.4 mg/dl (8.4-10.2); CARBON DIOXIDE 26 mmol/L (21-31); CHLORIDE 91 mmol/L (97-110); CREATININE 5.55 mg/dl (0.61-1.24); Estimated GFR 11 mL/min (>60); GLUCOSE 110 mg/dl (70-220); POTASSIUM 4.3 mmol/L (3.5-5.1); SODIUM 134 mmol/L (135-144); TOTAL PROTEIN 5.9 g/dl (6.1-8.1)
[2018-09-24 11:34] LABS: INR 1.12; PROTIME 14.5 Sec (11.9-14.9); PT RATIO 1.1
[2018-09-24 11:35] LABS: PARTIAL THROMBOPLASTIN TIME 41.2 Sec (23.0-35.0)
[2018-09-24 11:36] LABS: TROPONIN-I 0.025 ng/ml (0.000-0.120)
[2018-09-24 11:53] LABS: B-TYPE NATRIURETIC PEPTIDE 103000 PG/ML (0-125)
[2018-09-24] MEDS: ERTAPENEM SODIUM 1 GM in SOD CHLORIDE 0.9% 100 ML IVPB (14:35)
[2018-09-24] MEDS: ONDANSETRON 4 MG INJ IV (14:38)
[2018-09-24] MEDS: HYDROmorphONE 2 MG/ML SYG IV (14:39)
[2018-09-24] MEDS ORDERED: ACETAMINOPHEN 325 MG TAB PO (15:00)
[2018-09-24] MEDS ORDERED: ONDANSETRON 4 MG INJ IV ×2 (15:00→18:00)
[2018-09-24] MEDS: SEVELAMER 800 MG TAB PO (18:00)
[2018-09-24] MEDS ORDERED: NACL 0.9% 3 ML SYG IV (18:00)
[2018-09-24] MEDS: ATORVASTATIN 40 MG TAB PO (21:05)
[2018-09-24] MEDS: CINACALCET 30 MG TAB PO (21:05)
[2018-09-24] MEDS: HEPARIN 5,000 UNIT/1 ML VIAL SC (21:26)
[2018-09-24] MEDS: ACETAMINOPHEN 325 MG TAB PO (23:40)
[2018-09-25 06:06] LABS: ADD MAN DIFF? NO
[2018-09-25 06:10] LABS: BASOPHIL # 0.1 10^3/ul (0.0-0.1); BASOPHILS % 0.8 % (0.0-2.0); EOSINOPHILS # 0.2 10^3/ul (0.0-0.5); EOSINOPHILS % 2.9 % (0.0-7.0); HEMATOCRIT 40.6 % (42.0-52.0); HEMOGLOBIN 13.2 g/dl (14.0-18.0); LYMPHOCYTES # 0.7 10^3/ul (0.8-2.9); MEAN CORPUSCULAR HEMOGLOBIN 29.1 pg (29.0-33.0); MEAN CORPUSCULAR HGB CONC 32.5 g/dl (32.0-37.0); MEAN CORPUSCULAR VOLUME 89.6 fl (82.0-101.0); MEAN PLATELET VOLUME 10.5 fl (7.4-10.4); MONOCYTE # 0.5 10^3/ul (0.3-0.9); MONOCYTES % 7.6 % (0.0-11.0); NEUTROPHIL # 5.1 10^3/ul (1.6-7.5); NEUTROPHILS % 78.1 % (39.0-77.0); PLATELET COUNT 350 10^3/UL (140-415); RED BLOOD COUNT 4.53 10^6/ul (4.70-6.10); RED CELL DISTRIBUTION WIDTH 15.9 % (11.5-14.5)
[2018-09-25 06:10] LABS: WHITE BLOOD COUNT 6.5 10^3/ul (4.8-10.8)
[2018-09-25] MEDS: PANTOPRAZOLE (EC) 40 MG TAB PO (06:40)
[2018-09-25 06:49] LABS: HEMOGLOBIN A1C 5.7 % (0-5.9)
[2018-09-25 07:00] LABS: ALANINE AMINOTRANSFERASE 22 IU/L (13-69); ALBUMIN 3.1 g/dl (3.3-4.9); ALBUMIN/GLOBULIN RATIO 1.03; ALKALINE PHOSPHATASE 448 IU/L (42-121); ANION GAP 20 (5-13); ASPARTATE AMINO TRANSFERASE 26 IU/L (15-46); BLOOD UREA NITROGEN 57 mg/dl (7-20); CALCIUM 9.5 mg/dl (8.4-10.2); CARBON DIOXIDE 25 mmol/L (21-31); CHLORIDE 89 mmol/L (97-110); CREATININE 6.38 mg/dl (0.61-1.24); Estimated GFR 10 mL/min (>60); GLUCOSE 86 mg/dl (70-220); MAGNESIUM 2.2 mg/dl (1.7-2.5); PHOSPHORUS 9.7 mg/dl (2.5-4.9); POTASSIUM 5.5 mmol/L (3.5-5.1); SODIUM 134 mmol/L (135-144); TOTAL PROTEIN 6.1 g/dl (6.1-8.1)
[2018-09-25] MEDS: SEVELAMER 800 MG TAB PO (08:00)
[2018-09-25] MEDS: HEPARIN 5,000 UNIT/1 ML VIAL SC (09:00)
[2018-09-25] MEDS: SOD CHLORIDE 0.9% 100 ML (09:46)
[2018-09-25] MEDS: IOHEXOL 300MG/ML 150 ML BTL (09:47)
[2018-09-25] MEDS: ASPIRIN (EC) 325 MG TAB PO (09:53)
[2018-09-25] MEDS: SEVELAMER CARBONATE 800 MG TABLET PO ×2 (12:30→17:56)
[2018-09-25] MEDS: HYDROCODONE/APAP (5/325) TAB PO (13:57)
[2018-09-25] MEDS: DIGOXIN 500 MCG INJ IV (14:44)
[2018-09-25] MEDS ORDERED: ALBUMIN HUMAN 25% 100 ML IV (15:00)
[2018-09-25 16:12] LABS: HEPATITIS B SURFACE ANTIGEN NEGATIVE (NEGATIVE)
[2018-09-25] MEDS: CEFTRIAXONE 1 GM/50 ML (PMX) 50 ML IVPB (16:45)
[2018-09-25 19:21] LABS: CREATINE KINASE 71 IU/L (23-200)
[2018-09-25 19:35] LABS: CK INDEX 7.8; TROPONIN-I 0.049 ng/ml (0.000-0.120)
[2018-09-25 19:36] LABS: CK-MB 5.56 ng/ml (0.0-2.4)
[2018-09-25] MEDS: APIXABAN 5 MG TABLET PO (21:34)
[2018-09-25] MEDS: ATORVASTATIN 40 MG TAB PO (21:34)
[2018-09-25] MEDS: CINACALCET 30 MG TAB PO (21:34)
[2018-09-26] MEDS: HYDROCODONE/APAP (5/325) TAB PO ×3 (00:09→22:41)
[2018-09-26 01:21] LABS: CREATINE KINASE 77 IU/L (23-200)
[2018-09-26 01:36] LABS: TROPONIN-I 0.054 ng/ml (0.000-0.120)
[2018-09-26 01:37] LABS: CK-MB 5.39 ng/ml (0.0-2.4)
[2018-09-26] MEDS: DIPHENHYDRAMINE 25 MG CAP PO (03:04)
[2018-09-26] MEDS: PANTOPRAZOLE (EC) 40 MG TAB PO (05:18)
[2018-09-26 05:41] LABS: ADD MAN DIFF? NO
[2018-09-26 05:45] LABS: WHITE BLOOD COUNT 5.3 10^3/ul (4.8-10.8)
[2018-09-26 05:45] LABS: ABNORMAL IP MESSAGE 1; BASOPHIL # 0.1 10^3/ul (0.0-0.1); BASOPHILS % 1.1 % (0.0-2.0); EOSINOPHILS # 0.4 10^3/ul (0.0-0.5); EOSINOPHILS % 6.9 % (0.0-7.0); HEMATOCRIT 39.8 % (42.0-52.0); HEMOGLOBIN 12.8 g/dl (14.0-18.0); LYMPHOCYTES # 0.5 10^3/ul (0.8-2.9); LYMPHOCYTES % 8.4 % (15.0-51.0); MEAN CORPUSCULAR HEMOGLOBIN 28.6 pg (29.0-33.0); MEAN CORPUSCULAR HGB CONC 32.2 g/dl (32.0-37.0); MEAN PLATELET VOLUME 9.6 fl (7.4-10.4); MONOCYTE # 0.4 10^3/ul (0.3-0.9); MONOCYTES % 7.7 % (0.0-11.0); PLATELET COUNT 311 10^3/UL (140-415); POSITIVE DIFF @See below; RED BLOOD COUNT 4.47 10^6/ul (4.70-6.10); RED CELL DISTRIBUTION WIDTH 16.1 % (11.5-14.5)
[2018-09-26 06:06] LABS: MAGNESIUM 2.1 mg/dl (1.7-2.5)
[2018-09-26 06:06] LABS: PHOSPHORUS 7.4 mg/dl (2.5-4.9)
[2018-09-26 06:14] LABS: ANION GAP 14 (5-13); BLOOD UREA NITROGEN 44 mg/dl (7-20); CALCIUM 8.9 mg/dl (8.4-10.2); CARBON DIOXIDE 27 mmol/L (21-31); CHLORIDE 92 mmol/L (97-110); CREATININE 5.45 mg/dl (0.61-1.24); Estimated GFR 12 mL/min (>60); GLUCOSE 86 mg/dl (70-220); POTASSIUM 4.4 mmol/L (3.5-5.1); SODIUM 133 mmol/L (135-144)
[2018-09-26 06:21] LABS: CREATINE KINASE 77 IU/L (23-200)
[2018-09-26 06:23] LABS: CK INDEX 7.1; CK-MB 5.43 ng/ml (0.0-2.4); TROPONIN-I 0.051 ng/ml (0.000-0.120)
[2018-09-26] MEDS: SEVELAMER CARBONATE 800 MG TABLET PO ×3 (07:44→17:15)
[2018-09-26] MEDS: APIXABAN 5 MG TABLET PO ×2 (08:25→20:55)
[2018-09-26] MEDS: LIDOCAINE 1% (MPF) 5 ML VIAL (13:57)
[2018-09-26] MEDS: CEFTRIAXONE 1 GM/50 ML (PMX) 50 ML IVPB (17:15)
[2018-09-26 18:56] LABS: FLUID AMYLASE < 30 U/L; FLUID TYPE PARACENTESIS FLUID
[2018-09-26 18:57] LABS: FLUID GLUCOSE 92 mg/dl; FLUID LD 181 U/L; FLUID TOTAL PROTEIN 2.1 g/dl; FLUID TYPE PARACENTESIS FLUID
[2018-09-26 19:32] LABS: FLD MN% 84.5 %; FLD PMN% 15.5 %; FLD RBC 8000 /uL; FLD WBC 154 /cmm
[2018-09-26 20:04] LABS: FLD CLARITY HAZY; FLD COLOR RED
[2018-09-26 20:04] LABS: FLD TYPE PARACENTHESIS
[2018-09-26] MEDS: CINACALCET 30 MG TAB PO (20:55)
[2018-09-26] MEDS: INFLUENZA VIRUS VACCINE 0.5 ML (DISPENSING) IM* (20:55)
[2018-09-26] MEDS: ATORVASTATIN 40 MG TAB PO (20:55)
[2018-09-27] MEDS: PANTOPRAZOLE (EC) 40 MG TAB PO (06:20)
[2018-09-27] MEDS: APIXABAN 5 MG TABLET PO ×2 (08:16→21:42)
[2018-09-27] MEDS: SEVELAMER CARBONATE 800 MG TABLET PO ×3 (08:16→17:14)
[2018-09-27] MEDS: HYDROCODONE/APAP (5/325) TAB PO (09:16)
[2018-09-27] MEDS: CEFTRIAXONE 1 GM/50 ML (PMX) 50 ML IVPB (16:36)
[2018-09-27] MEDS: CINACALCET 30 MG TAB PO (21:00)
[2018-09-27] MEDS: ATORVASTATIN 40 MG TAB PO (21:42)
[2018-09-28] MEDS: ALBUMIN HUMAN 25% 100 ML IV (01:15)
[2018-09-28 05:47] LABS: ADD MAN DIFF? NO
[2018-09-28 05:50] LABS: WHITE BLOOD COUNT 5.1 10^3/ul (4.8-10.8)
[2018-09-28 05:50] LABS: ABNORMAL IP MESSAGE 1; BASOPHILS % 0.4 % (0.0-2.0); EOSINOPHILS # 0.2 10^3/ul (0.0-0.5); EOSINOPHILS % 4.2 % (0.0-7.0); HEMATOCRIT 38.3 % (42.0-52.0); HEMOGLOBIN 12.4 g/dl (14.0-18.0); LYMPHOCYTES # 0.3 10^3/ul (0.8-2.9); LYMPHOCYTES % 6.7 % (15.0-51.0); MEAN CORPUSCULAR HGB CONC 32.4 g/dl (32.0-37.0); MEAN CORPUSCULAR VOLUME 89.7 fl (82.0-101.0); MEAN PLATELET VOLUME 9.5 fl (7.4-10.4); MONOCYTE # 0.3 10^3/ul (0.3-0.9); MONOCYTES % 6.1 % (0.0-11.0); NEUTROPHIL # 4.2 10^3/ul (1.6-7.5); NEUTROPHILS % 82.2 % (39.0-77.0); PLATELET COUNT 297 10^3/UL (140-415); POSITIVE DIFF @See below; RED BLOOD COUNT 4.27 10^6/ul (4.70-6.10); RED CELL DISTRIBUTION WIDTH 16.4 % (11.5-14.5)
[2018-09-28] MEDS: PANTOPRAZOLE (EC) 40 MG TAB PO (06:03)
[2018-09-28] MEDS: SOD CHLORIDE 0.9% 250 ML IV (06:03)
[2018-09-28 06:15] LABS: ANION GAP 15 (5-13); BLOOD UREA NITROGEN 41 mg/dl (7-20); CALCIUM 8.5 mg/dl (8.4-10.2); CARBON DIOXIDE 26 mmol/L (21-31); CHLORIDE 91 mmol/L (97-110); CREATININE 5.82 mg/dl (0.61-1.24); Estimated GFR 11 mL/min (>60); GLUCOSE 92 mg/dl (70-220); PHOSPHORUS 6.6 mg/dl (2.5-4.9); POTASSIUM 4.9 mmol/L (3.5-5.1); SODIUM 132 mmol/L (135-144)
[2018-09-28 07:09] LABS: MAGNESIUM 2.2 mg/dl (1.7-2.5)
[2018-09-28] MEDS: SEVELAMER CARBONATE 800 MG TABLET PO (08:14)
[2018-09-28] MEDS: MIDODRINE 5 MG TAB PO (08:33)
[2018-09-28] MEDS: APIXABAN 5 MG TABLET PO (08:33)
[2018-09-28] MEDS: HYDROCODONE/APAP (5/325) TAB PO (08:36)
== END 2018-09-28 12:00 | disposition home or self-care (01) | DRG 291 ==
LOC: E/R 09:52 → 6WM 14:56
PROC: 5A1D70Z Performance of Urinary Filtration, Intermittent, Less than 6 Hours Per Day (ICD-10-PCS; 2018-09-25)
PROC: 0W9G3ZX Drainage of Peritoneal Cavity, Percutaneous Approach, Diagnostic (ICD-10-PCS; principal; 2018-09-26)
PROC: 5A1D70Z Performance of Urinary Filtration, Intermittent, Less than 6 Hours Per Day (ICD-10-PCS; 2018-09-26)
PROC: 5A1D70Z Performance of Urinary Filtration, Intermittent, Less than 6 Hours Per Day (ICD-10-PCS; 2018-09-28)
DX: I13.2 Hypertensive heart and chronic kidney disease with heart failure and with stage 5 chronic kidney disease, or end stage renal disease (principal); I50.23 Acute on chronic systolic (congestive) heart failure; N18.6 End stage renal disease; E87.1 Hypo-osmolality and hyponatremia; L03.116 Cellulitis of left lower limb; R18.8 Other ascites; I95.89 Other hypotension; E87.5 Hyperkalemia; I42.9 Cardiomyopathy, unspecified; I48.2 Chronic atrial fibrillation; E78.5 Hyperlipidemia, unspecified; D63.1 Anemia in chronic kidney disease; Z99.2 Dependence on renal dialysis; Z79.82 Long term (current) use of aspirin; Z79.01 Long term (current) use of anticoagulants
CPT/HCPCS: 36415; 71045; 73700; 74177; 80048; 80053; 82150; 82550; 82553; 82945; 83036; 83615; 83735; 83880; 83986; 84100; 84157; 84443; 84484; 85025; 85610; 85730; 87040; 87070; 87102; 87116; 87340; 89051; 89060; 90686; 90935; 93005; 93971; 96372; 96374; 96375; 97161; 97164; 99291-25

== ENCOUNTER 2018-10-17 08:44 | Inpatient (IN) | payer OTHER ==
[2018-10-17 09:51] LABS: ADD MAN DIFF? NO
[2018-10-17 09:54] LABS: ABNORMAL IP MESSAGE 1; BASOPHIL # 0.1 10^3/ul (0.0-0.1); BASOPHILS % 0.5 % (0.0-2.0); EOSINOPHILS # 0.2 10^3/ul (0.0-0.5); EOSINOPHILS % 1.4 % (0.0-7.0); HEMATOCRIT 42.5 % (42.0-52.0); HEMOGLOBIN 13.9 g/dl (14.0-18.0); LYMPHOCYTES # 0.4 10^3/ul (0.8-2.9); LYMPHOCYTES % 2.8 % (15.0-51.0); MEAN CORPUSCULAR HEMOGLOBIN 28.8 pg (29.0-33.0); MEAN CORPUSCULAR HGB CONC 32.7 g/dl (32.0-37.0); MEAN CORPUSCULAR VOLUME 88.2 fl (82.0-101.0); MEAN PLATELET VOLUME 10.7 fl (7.4-10.4); MONOCYTE # 0.5 10^3/ul (0.3-0.9); NEUTROPHILS % 91.1 % (39.0-77.0); NUCLEATED RED BLOOD CELLS% 0.3 /100WBC (0.0-0.0); PLATELET COUNT 440 10^3/UL (140-415); POSITIVE DIFF @See below; RED BLOOD COUNT 4.82 10^6/ul (4.70-6.10); RED CELL DISTRIBUTION WIDTH 17.6 % (11.5-14.5)
[2018-10-17 09:54] LABS: WHITE BLOOD COUNT 15.4 10^3/ul (4.8-10.8)
[2018-10-17] MEDS: CEFEPIME 1GM/50 ML (PMX) 50 ML IVPB (09:58)
[2018-10-17 10:17] LABS: ALANINE AMINOTRANSFERASE 13 IU/L (13-69); ALBUMIN/GLOBULIN RATIO 0.85; ALKALINE PHOSPHATASE 475 IU/L (42-121); ANION GAP 19 (5-13); ASPARTATE AMINO TRANSFERASE 46 IU/L (15-46); BILIRUBIN,INDIRECT 0.4 mg/dl (0-1.1); BILIRUBIN,TOTAL 2.3 mg/dl (0.2-1.3); BLOOD UREA NITROGEN 43 mg/dl (7-20); CALCIUM 9.4 mg/dl (8.4-10.2); CARBON DIOXIDE 28 mmol/L (21-31); CHLORIDE 86 mmol/L (97-110); CREATININE 4.91 mg/dl (0.61-1.24); Estimated GFR 13 mL/min (>60); GLUCOSE 100 mg/dl (70-220); LIPASE 27 U/L (23-300); POTASSIUM 4.2 mmol/L (3.5-5.1); SODIUM 133 mmol/L (135-144); TOTAL PROTEIN 6.5 g/dl (6.1-8.1)
[2018-10-17] MEDS: VANCOMYCIN 1 GM (PMX) 250 ML IVPB (10:36)
[2018-10-17] MEDS: SOD CHLORIDE 0.9% 1,000 ML IV (10:47)
[2018-10-17] MEDS: DILTIAZEM 25 MG INJ IV (11:09)
[2018-10-17] MEDS ORDERED: DILTIAZEM 25 MG INJ IV (14:30)
[2018-10-17 14:31] LABS: CREATINE KINASE 197 IU/L (23-200)
[2018-10-17 14:46] LABS: CK INDEX 5.3; TROPONIN-I 0.028 ng/ml (0.000-0.120)
[2018-10-17] MEDS: DIGOXIN 500 MCG INJ IV (15:01)
[2018-10-17] MEDS: ALBUMIN HUMAN 25% 100 ML IV (15:12)
[2018-10-17] MEDS: SEVELAMER CARBONATE 800 MG TABLET PO (17:02)
[2018-10-17] MEDS ORDERED: SEVELAMER 800 MG TAB PO (17:55)
[2018-10-17 20:14] LABS: CREATINE KINASE 155 IU/L (23-200)
[2018-10-17 20:27] LABS: CK INDEX 5.9; TROPONIN-I 0.028 ng/ml (0.000-0.120)
[2018-10-17 20:33] LABS: CK-MB 9.17 ng/ml (0.0-2.4)
[2018-10-17] MEDS: CINACALCET 30 MG TAB PO (21:19)
[2018-10-17] MEDS: APIXABAN 5 MG TABLET PO (21:19)
[2018-10-17] MEDS: MEROPENEM 1 GM/50ML(PMX) 50 ML IVPB (21:19)
[2018-10-17] MEDS: ATORVASTATIN 40 MG TAB PO (21:19)
[2018-10-17] MEDS: HYDROCODONE/APAP (5/325) TAB PO (22:39)
[2018-10-18 01:45] LABS: CREATINE KINASE 159 IU/L (23-200)
[2018-10-18 01:57] LABS: CK INDEX 5.6; TROPONIN-I 0.035 ng/ml (0.000-0.120)
[2018-10-18 02:00] LABS: CK-MB 8.89 ng/ml (0.0-2.4)
[2018-10-18] MEDS: PANTOPRAZOLE (EC) 40 MG TAB PO (05:55)
[2018-10-18] MEDS: ALBUMIN HUMAN 25% 100 ML IV ×3 (07:41→18:25)
[2018-10-18] MEDS: SEVELAMER CARBONATE 800 MG TABLET PO ×3 (07:41→18:10)
[2018-10-18] MEDS: FUROSEMIDE 40 MG INJ IV (07:41)
[2018-10-18 08:14] LABS: ADD MAN DIFF? NO
[2018-10-18] MEDS: APIXABAN 5 MG TABLET PO ×2 (08:18→21:24)
[2018-10-18] MEDS: ASPIRIN (EC) 81 MG TAB PO (08:18)
[2018-10-18] MEDS: MULTIVIT/CA CARB/B CMPLX/FA TAB PO (08:18)
[2018-10-18 08:25] LABS: ABNORMAL IP MESSAGE 1; BASOPHIL # 0.1 10^3/ul (0.0-0.1); BASOPHILS % 0.5 % (0.0-2.0); EOSINOPHILS # 0.4 10^3/ul (0.0-0.5); EOSINOPHILS % 3.6 % (0.0-7.0); HEMATOCRIT 34.7 % (42.0-52.0); HEMOGLOBIN 11.5 g/dl (14.0-18.0); LYMPHOCYTES # 0.4 10^3/ul (0.8-2.9); LYMPHOCYTES % 3.5 % (15.0-51.0); MEAN CORPUSCULAR HGB CONC 33.1 g/dl (32.0-37.0); MEAN CORPUSCULAR VOLUME 87.4 fl (82.0-101.0); MEAN PLATELET VOLUME 10.1 fl (7.4-10.4); MONOCYTE # 0.4 10^3/ul (0.3-0.9); MONOCYTES % 3.8 % (0.0-11.0); NEUTROPHIL # 9.4 10^3/ul (1.6-7.5); NEUTROPHILS % 86.8 % (39.0-77.0); NUCLEATED RED BLOOD CELLS% 0.2 /100WBC (0.0-0.0); PLATELET COUNT 364 10^3/UL (140-415); POSITIVE DIFF @See below; RED BLOOD COUNT 3.97 10^6/ul (4.70-6.10); RED CELL DISTRIBUTION WIDTH 17.2 % (11.5-14.5)
[2018-10-18 08:25] LABS: WHITE BLOOD COUNT 10.8 10^3/ul (4.8-10.8)
[2018-10-18 08:50] LABS: ANION GAP 9 (5-13); BLOOD UREA NITROGEN 52 mg/dl (7-20); CALCIUM 8.6 mg/dl (8.4-10.2); CARBON DIOXIDE 29 mmol/L (21-31); CHLORIDE 91 mmol/L (97-110); CREATININE 5.43 mg/dl (0.61-1.24); Estimated GFR 12 mL/min (>60); GLUCOSE 82 mg/dl (70-220); SODIUM 129 mmol/L (135-144)
[2018-10-18 09:00] LABS: MAGNESIUM 2.1 mg/dl (1.7-2.5)
[2018-10-18] MEDS ORDERED: ASPIRIN (EC) 325 MG TAB PO (09:00)
[2018-10-18] MEDS: MEROPENEM 1 GM/50ML(PMX) 50 ML IVPB (21:23)
[2018-10-18] MEDS: HYDROCODONE/APAP (5/325) TAB PO (21:24)
[2018-10-18] MEDS: CINACALCET 30 MG TAB PO (21:24)
[2018-10-18] MEDS: ATORVASTATIN 40 MG TAB PO (21:24)
[2018-10-19] MEDS: PANTOPRAZOLE (EC) 40 MG TAB PO (06:12)
[2018-10-19 06:46] LABS: ADD MAN DIFF? NO
[2018-10-19 06:52] LABS: WHITE BLOOD COUNT 8.4 10^3/ul (4.8-10.8)
[2018-10-19 06:52] LABS: ABNORMAL IP MESSAGE 1; BASOPHILS % 0.2 % (0.0-2.0); EOSINOPHILS # 0.2 10^3/ul (0.0-0.5); EOSINOPHILS % 2.5 % (0.0-7.0); HEMOGLOBIN 11.6 g/dl (14.0-18.0); LYMPHOCYTES # 0.3 10^3/ul (0.8-2.9); LYMPHOCYTES % 3.4 % (15.0-51.0); MEAN CORPUSCULAR HEMOGLOBIN 28.9 pg (29.0-33.0); MEAN CORPUSCULAR HGB CONC 33.1 g/dl (32.0-37.0); MEAN CORPUSCULAR VOLUME 87.1 fl (82.0-101.0); MEAN PLATELET VOLUME 9.9 fl (7.4-10.4); MONOCYTE # 0.3 10^3/ul (0.3-0.9); NEUTROPHIL # 7.4 10^3/ul (1.6-7.5); NEUTROPHILS % 88.1 % (39.0-77.0); PLATELET COUNT 340 10^3/UL (140-415); POSITIVE DIFF @See below; RED BLOOD COUNT 4.02 10^6/ul (4.70-6.10); RED CELL DISTRIBUTION WIDTH 17.3 % (11.5-14.5)
[2018-10-19 07:17] LABS: ALANINE AMINOTRANSFERASE 14 IU/L (13-69); ALBUMIN 2.9 g/dl (3.3-4.9); ALKALINE PHOSPHATASE 329 IU/L (42-121); ASPARTATE AMINO TRANSFERASE 29 IU/L (15-46); BILIRUBIN,INDIRECT 0.3 mg/dl (0-1.1); BILIRUBIN,TOTAL 1.2 mg/dl (0.2-1.3); TOTAL PROTEIN 5.4 g/dl (6.1-8.1)
[2018-10-19 07:21] LABS: ANION GAP 14 (5-13); BLOOD UREA NITROGEN 39 mg/dl (7-20); CALCIUM 8.5 mg/dl (8.4-10.2); CARBON DIOXIDE 26 mmol/L (21-31); CHLORIDE 91 mmol/L (97-110); CREATININE 4.85 mg/dl (0.61-1.24); Estimated GFR 13 mL/min (>60); GLUCOSE 94 mg/dl (70-220); POTASSIUM 4.3 mmol/L (3.5-5.1); SODIUM 131 mmol/L (135-144)
[2018-10-19] MEDS: APIXABAN 5 MG TABLET PO ×2 (09:29→21:33)
[2018-10-19] MEDS: SEVELAMER CARBONATE 800 MG TABLET PO ×3 (09:29→17:21)
[2018-10-19] MEDS: MULTIVIT/CA CARB/B CMPLX/FA TAB PO (09:29)
[2018-10-19] MEDS: ASPIRIN (EC) 81 MG TAB PO (09:29)
[2018-10-19 09:44] LABS: INR 1.46; PARTIAL THROMBOPLASTIN TIME 41.8 Sec (23.0-35.0); PROTIME 17.8 Sec (11.9-14.9); PT RATIO 1.4
[2018-10-19] MEDS: HYDROCODONE/APAP (5/325) TAB PO ×4 (09:48→22:22)
[2018-10-19] MEDS ORDERED: VANCOMYCIN IV PER PHARMACY XX (13:00)
[2018-10-19] MEDS: [UNRECOGNIZED DRUG - REMARK] XX (16:00)
[2018-10-19] MEDS: LIDOCAINE 1% (MPF) 5 ML VIAL (16:54)
[2018-10-19 18:09] LABS: VANCOMYCIN,RANDOM 5.8 ug/ml
[2018-10-19] MEDS: MEROPENEM 1 GM/50ML(PMX) 50 ML IVPB (21:32)
[2018-10-19] MEDS: CINACALCET 30 MG TAB PO (21:34)
[2018-10-19] MEDS: ATORVASTATIN 40 MG TAB PO (21:34)
[2018-10-19] MEDS: VANCOMYCIN HCL 1.25 GM in SOD CHLORIDE 0.9% 250 ML IVPB (22:23)
[2018-10-20] MEDS: PANTOPRAZOLE (EC) 40 MG TAB PO (05:24)
[2018-10-20] MEDS: HYDROCODONE/APAP (5/325) TAB PO ×2 (05:25→14:03)
[2018-10-20 06:56] LABS: ADD MAN DIFF? NO
[2018-10-20 07:01] LABS: WHITE BLOOD COUNT 6.7 10^3/ul (4.8-10.8)
[2018-10-20 07:01] LABS: ABNORMAL IP MESSAGE 1; BASOPHIL # 0.1 10^3/ul (0.0-0.1); BASOPHILS % 0.7 % (0.0-2.0); EOSINOPHILS # 0.2 10^3/ul (0.0-0.5); HEMATOCRIT 36.4 % (42.0-52.0); HEMOGLOBIN 11.9 g/dl (14.0-18.0); LYMPHOCYTES # 0.4 10^3/ul (0.8-2.9); LYMPHOCYTES % 5.8 % (15.0-51.0); MEAN CORPUSCULAR HEMOGLOBIN 29.2 pg (29.0-33.0); MEAN CORPUSCULAR HGB CONC 32.7 g/dl (32.0-37.0); MEAN CORPUSCULAR VOLUME 89.2 fl (82.0-101.0); MEAN PLATELET VOLUME 10.4 fl (7.4-10.4); MONOCYTE # 0.5 10^3/ul (0.3-0.9); MONOCYTES % 6.8 % (0.0-11.0); NEUTROPHIL # 5.3 10^3/ul (1.6-7.5); NEUTROPHILS % 79.4 % (39.0-77.0); PLATELET COUNT 357 10^3/UL (140-415); POSITIVE DIFF @See below; RED BLOOD COUNT 4.08 10^6/ul (4.70-6.10); RED CELL DISTRIBUTION WIDTH 17.8 % (11.5-14.5)
[2018-10-20 07:49] LABS: ANION GAP 13 (5-13); BLOOD UREA NITROGEN 36 mg/dl (7-20); CALCIUM 8.5 mg/dl (8.4-10.2); CARBON DIOXIDE 25 mmol/L (21-31); CHLORIDE 94 mmol/L (97-110); CREATININE 4.36 mg/dl (0.61-1.24); Estimated GFR 15 mL/min (>60); GLUCOSE 96 mg/dl (70-220); POTASSIUM 4.6 mmol/L (3.5-5.1); SODIUM 132 mmol/L (135-144)
[2018-10-20] MEDS: ALBUMIN HUMAN 25% 100 ML IV (08:38)
[2018-10-20] MEDS: MULTIVIT/CA CARB/B CMPLX/FA TAB PO (08:47)
[2018-10-20] MEDS: SEVELAMER CARBONATE 800 MG TABLET PO ×3 (08:48→17:51)
[2018-10-20] MEDS: APIXABAN 5 MG TABLET PO ×2 (08:48→20:52)
[2018-10-20] MEDS: ASPIRIN (EC) 81 MG TAB PO (08:48)
[2018-10-20] MEDS: CINACALCET 30 MG TAB PO (20:51)
[2018-10-20] MEDS: MEROPENEM 1 GM/50ML(PMX) 50 ML IVPB (20:51)
[2018-10-20] MEDS: ATORVASTATIN 40 MG TAB PO (20:52)
[2018-10-21] MEDS: HYDROCODONE/APAP (5/325) TAB PO ×2 (03:02→13:20)
[2018-10-21 06:06] LABS: ADD MAN DIFF? NO
[2018-10-21 06:30] LABS: ABNORMAL IP MESSAGE 1; BASOPHIL # 0.1 10^3/ul (0.0-0.1); BASOPHILS % 0.6 % (0.0-2.0); EOSINOPHILS # 0.2 10^3/ul (0.0-0.5); EOSINOPHILS % 2.7 % (0.0-7.0); HEMATOCRIT 37.6 % (42.0-52.0); HEMOGLOBIN 12.4 g/dl (14.0-18.0); LYMPHOCYTES # 0.4 10^3/ul (0.8-2.9); LYMPHOCYTES % 5.3 % (15.0-51.0); MEAN CORPUSCULAR HEMOGLOBIN 29.5 pg (29.0-33.0); MEAN CORPUSCULAR VOLUME 89.5 fl (82.0-101.0); MONOCYTE # 0.6 10^3/ul (0.3-0.9); MONOCYTES % 6.8 % (0.0-11.0); NEUTROPHIL # 6.7 10^3/ul (1.6-7.5); NEUTROPHILS % 81.3 % (39.0-77.0); PLATELET COUNT 360 10^3/UL (140-415); POSITIVE DIFF @See below
[2018-10-21 06:30] LABS: WHITE BLOOD COUNT 8.2 10^3/ul (4.8-10.8)
[2018-10-21] MEDS: PANTOPRAZOLE (EC) 40 MG TAB PO (06:40)
[2018-10-21 06:44] LABS: VANCOMYCIN,RANDOM 15.6 ug/ml
[2018-10-21 07:22] LABS: ALANINE AMINOTRANSFERASE 18 IU/L (13-69); ALBUMIN/GLOBULIN RATIO 1.07; ALKALINE PHOSPHATASE 331 IU/L (42-121); ANION GAP 10 (5-13); ASPARTATE AMINO TRANSFERASE 32 IU/L (15-46); BILIRUBIN,INDIRECT 0.2 mg/dl (0-1.1); BILIRUBIN,TOTAL 0.3 mg/dl (0.2-1.3); BLOOD UREA NITROGEN 35 mg/dl (7-20); CALCIUM 8.6 mg/dl (8.4-10.2); CARBON DIOXIDE 25 mmol/L (21-31); CHLORIDE 95 mmol/L (97-110); CREATININE 4.14 mg/dl (0.61-1.24); Estimated GFR 16 mL/min (>60); GLUCOSE 96 mg/dl (70-220); MAGNESIUM 2.1 mg/dl (1.7-2.5); PHOSPHORUS 5.2 mg/dl (2.5-4.9); SODIUM 130 mmol/L (135-144); TOTAL PROTEIN 5.8 g/dl (6.1-8.1)
[2018-10-21] MEDS: MULTIVIT/CA CARB/B CMPLX/FA TAB PO (09:01)
[2018-10-21] MEDS: ASPIRIN (EC) 81 MG TAB PO (09:01)
[2018-10-21] MEDS: APIXABAN 5 MG TABLET PO ×2 (09:01→21:02)
[2018-10-21] MEDS: SEVELAMER CARBONATE 800 MG TABLET PO ×3 (09:02→17:34)
[2018-10-21] MEDS: CINACALCET 30 MG TAB PO (21:02)
[2018-10-21] MEDS: ATORVASTATIN 40 MG TAB PO (21:02)
[2018-10-21] MEDS: MEROPENEM 1 GM/50ML(PMX) 50 ML IVPB (21:03)
[2018-10-21] MEDS: VANCOMYCIN 1 GM 250 ML IVPB (21:53)
[2018-10-22] MEDS: PANTOPRAZOLE (EC) 40 MG TAB PO (05:52)
[2018-10-22] MEDS: HYDROCODONE/APAP (5/325) TAB PO ×2 (05:52→19:37)
[2018-10-22 06:02] LABS: ADD MAN DIFF? NO
[2018-10-22 06:07] LABS: BASOPHIL # 0.1 10^3/ul (0.0-0.1); BASOPHILS % 0.7 % (0.0-2.0); EOSINOPHILS # 0.3 10^3/ul (0.0-0.5); EOSINOPHILS % 2.8 % (0.0-7.0); HEMATOCRIT 38.3 % (42.0-52.0); HEMOGLOBIN 12.4 g/dl (14.0-18.0); LYMPHOCYTES # 0.6 10^3/ul (0.8-2.9); LYMPHOCYTES % 6.7 % (15.0-51.0); MEAN CORPUSCULAR HEMOGLOBIN 29.2 pg (29.0-33.0); MEAN CORPUSCULAR HGB CONC 32.4 g/dl (32.0-37.0); MEAN CORPUSCULAR VOLUME 90.1 fl (82.0-101.0); MONOCYTE # 0.5 10^3/ul (0.3-0.9); MONOCYTES % 5.7 % (0.0-11.0); NEUTROPHIL # 7.5 10^3/ul (1.6-7.5); NEUTROPHILS % 81.2 % (39.0-77.0); PLATELET COUNT 407 10^3/UL (140-415); RED BLOOD COUNT 4.25 10^6/ul (4.70-6.10); RED CELL DISTRIBUTION WIDTH 18.2 % (11.5-14.5)
[2018-10-22 06:07] LABS: WHITE BLOOD COUNT 9.2 10^3/ul (4.8-10.8)
[2018-10-22 06:32] LABS: MAGNESIUM 2.2 mg/dl (1.7-2.5)
[2018-10-22 06:55] LABS: ALANINE AMINOTRANSFERASE 16 IU/L (13-69); ALBUMIN 3.1 g/dl (3.3-4.9); ALBUMIN/GLOBULIN RATIO 1.24; ALKALINE PHOSPHATASE 340 IU/L (42-121); ANION GAP 12 (5-13); ASPARTATE AMINO TRANSFERASE 35 IU/L (15-46); BILIRUBIN,INDIRECT 0.2 mg/dl (0-1.1); BILIRUBIN,TOTAL 0.3 mg/dl (0.2-1.3); BLOOD UREA NITROGEN 50 mg/dl (7-20); CALCIUM 8.7 mg/dl (8.4-10.2); CARBON DIOXIDE 24 mmol/L (21-31); CHLORIDE 96 mmol/L (97-110); CREATININE 5.01 mg/dl (0.61-1.24); Estimated GFR 13 mL/min (>60); GLUCOSE 87 mg/dl (70-220); POTASSIUM 5.7 mmol/L (3.5-5.1); SODIUM 132 mmol/L (135-144); TOTAL PROTEIN 5.6 g/dl (6.1-8.1)
[2018-10-22] MEDS: APIXABAN 5 MG TABLET PO ×2 (08:34→20:17)
[2018-10-22] MEDS: MULTIVIT/CA CARB/B CMPLX/FA TAB PO (08:34)
[2018-10-22] MEDS: ASPIRIN (EC) 81 MG TAB PO (08:34)
[2018-10-22] MEDS: SEVELAMER CARBONATE 800 MG TABLET PO ×3 (08:34→17:41)
[2018-10-22] MEDS: ALBUMIN HUMAN 25% 100 ML IV ×2 (14:38→15:09)
[2018-10-22] MEDS: ERTAPENEM SODIUM 1 GM in SOD CHLORIDE 0.9% 100 ML IVPB (16:57)
[2018-10-22] MEDS: ERTAPENEM SODIUM 0.5 GM in SOD CHLORIDE 0.9% 100 ML IVPB (17:40)
[2018-10-22] MEDS: ATORVASTATIN 40 MG TAB PO (20:17)
[2018-10-22] MEDS: CINACALCET 30 MG TAB PO (20:17)
[2018-10-23 06:05] LABS: ADD MAN DIFF? NO
[2018-10-23 06:11] LABS: ABNORMAL IP MESSAGE 1; BASOPHIL # 0.1 10^3/ul (0.0-0.1); BASOPHILS % 0.6 % (0.0-2.0); EOSINOPHILS # 0.2 10^3/ul (0.0-0.5); EOSINOPHILS % 2.8 % (0.0-7.0); HEMATOCRIT 35.3 % (42.0-52.0); HEMOGLOBIN 11.4 g/dl (14.0-18.0); LYMPHOCYTES # 0.5 10^3/ul (0.8-2.9); LYMPHOCYTES % 5.9 % (15.0-51.0); MEAN CORPUSCULAR HEMOGLOBIN 29.4 pg (29.0-33.0); MEAN CORPUSCULAR HGB CONC 32.3 g/dl (32.0-37.0); MEAN PLATELET VOLUME 10.2 fl (7.4-10.4); MONOCYTE # 0.5 10^3/ul (0.3-0.9); MONOCYTES % 6.7 % (0.0-11.0); NEUTROPHIL # 6.6 10^3/ul (1.6-7.5); NEUTROPHILS % 82.2 % (39.0-77.0); PLATELET COUNT 308 10^3/UL (140-415); POSITIVE DIFF @See below; RED BLOOD COUNT 3.88 10^6/ul (4.70-6.10); RED CELL DISTRIBUTION WIDTH 18.2 % (11.5-14.5)
[2018-10-23] MEDS: PANTOPRAZOLE (EC) 40 MG TAB PO (06:28)
[2018-10-23 06:38] LABS: PHOSPHORUS 5.5 mg/dl (2.5-4.9)
[2018-10-23 06:38] LABS: MAGNESIUM 1.9 mg/dl (1.7-2.5)
[2018-10-23 06:39] LABS: ALANINE AMINOTRANSFERASE 18 IU/L (13-69); ALBUMIN 3.2 g/dl (3.3-4.9); ALBUMIN/GLOBULIN RATIO 1.18; ALKALINE PHOSPHATASE 282 IU/L (42-121); ANION GAP 14 (5-13); ASPARTATE AMINO TRANSFERASE 25 IU/L (15-46); BILIRUBIN,INDIRECT 0.2 mg/dl (0-1.1); BILIRUBIN,TOTAL 0.2 mg/dl (0.2-1.3); BLOOD UREA NITROGEN 37 mg/dl (7-20); CALCIUM 8.5 mg/dl (8.4-10.2); CARBON DIOXIDE 25 mmol/L (21-31); CHLORIDE 93 mmol/L (97-110); CREATININE 4.36 mg/dl (0.61-1.24); Estimated GFR 15 mL/min (>60); GLUCOSE 92 mg/dl (70-220); POTASSIUM 4.7 mmol/L (3.5-5.1); SODIUM 132 mmol/L (135-144); TOTAL PROTEIN 5.9 g/dl (6.1-8.1)
[2018-10-23] MEDS: SEVELAMER CARBONATE 800 MG TABLET PO ×4 (08:15→17:55)
[2018-10-23] MEDS: MULTIVIT/CA CARB/B CMPLX/FA TAB PO (08:16)
[2018-10-23] MEDS: ASPIRIN (EC) 81 MG TAB PO (08:16)
[2018-10-23] MEDS: APIXABAN 5 MG TABLET PO ×2 (08:16→21:37)
[2018-10-23] MEDS: HYDROCODONE/APAP (5/325) TAB PO ×2 (09:21→18:04)
[2018-10-23] MEDS: ALBUMIN HUMAN 25% 100 ML IV (13:58)
[2018-10-23] MEDS: ERTAPENEM SODIUM 0.5 GM in SOD CHLORIDE 0.9% 100 ML IVPB (17:55)
[2018-10-23] MEDS: ATORVASTATIN 40 MG TAB PO (21:36)
[2018-10-23] MEDS: CINACALCET 30 MG TAB PO (21:38)
[2018-10-23] MEDS: LACTOBACILLUS RHAMNOSUS CAP PO (21:39)
[2018-10-24] MEDS: HYDROCODONE/APAP (5/325) TAB PO ×2 (05:03→23:57)
[2018-10-24] MEDS: PANTOPRAZOLE (EC) 40 MG TAB PO (05:12)
[2018-10-24 05:21] LABS: ADD MAN DIFF? NO
[2018-10-24 05:31] LABS: WHITE BLOOD COUNT 7.6 10^3/ul (4.8-10.8)
[2018-10-24 05:31] LABS: ABNORMAL IP MESSAGE 1; BASOPHIL # 0.1 10^3/ul (0.0-0.1); BASOPHILS % 0.8 % (0.0-2.0); EOSINOPHILS # 0.2 10^3/ul (0.0-0.5); EOSINOPHILS % 2.2 % (0.0-7.0); HEMATOCRIT 37.9 % (42.0-52.0); HEMOGLOBIN 12.1 g/dl (14.0-18.0); LYMPHOCYTES # 0.5 10^3/ul (0.8-2.9); LYMPHOCYTES % 6.5 % (15.0-51.0); MEAN CORPUSCULAR HEMOGLOBIN 28.9 pg (29.0-33.0); MEAN CORPUSCULAR HGB CONC 31.9 g/dl (32.0-37.0); MEAN CORPUSCULAR VOLUME 90.7 fl (82.0-101.0); MONOCYTE # 0.6 10^3/ul (0.3-0.9); MONOCYTES % 7.3 % (0.0-11.0); NEUTROPHIL # 6.2 10^3/ul (1.6-7.5); NEUTROPHILS % 81.7 % (39.0-77.0); PLATELET COUNT 327 10^3/UL (140-415); POSITIVE DIFF @See below; RED BLOOD COUNT 4.18 10^6/ul (4.70-6.10); RED CELL DISTRIBUTION WIDTH 18.8 % (11.5-14.5)
[2018-10-24 05:45] LABS: ALANINE AMINOTRANSFERASE 17 IU/L (13-69); ALBUMIN 3.5 g/dl (3.3-4.9); ALBUMIN/GLOBULIN RATIO 1.29; ALKALINE PHOSPHATASE 289 IU/L (42-121); ANION GAP 12 (5-13); ASPARTATE AMINO TRANSFERASE 26 IU/L (15-46); BILIRUBIN,INDIRECT 0.3 mg/dl (0-1.1); BILIRUBIN,TOTAL 0.3 mg/dl (0.2-1.3); BLOOD UREA NITROGEN 27 mg/dl (7-20); CALCIUM 8.9 mg/dl (8.4-10.2); CARBON DIOXIDE 28 mmol/L (21-31); CHLORIDE 95 mmol/L (97-110); CREATININE 3.84 mg/dl (0.61-1.24); Estimated GFR 18 mL/min (>60); GLUCOSE 93 mg/dl (70-220); POTASSIUM 4.8 mmol/L (3.5-5.1); SODIUM 135 mmol/L (135-144); TOTAL PROTEIN 6.2 g/dl (6.1-8.1)
[2018-10-24 05:46] LABS: VANCOMYCIN,RANDOM 14.3 ug/ml
[2018-10-24 05:51] LABS: HEMOGLOBIN A1C 5.4 % (0-5.9)
[2018-10-24 05:59] LABS: INR 1.36; PROTIME 16.9 Sec (11.9-14.9); PT RATIO 1.3
[2018-10-24 06:02] LABS: PHOSPHORUS 5.2 mg/dl (2.5-4.9)
[2018-10-24] MEDS: SEVELAMER CARBONATE 800 MG TABLET PO ×3 (09:15→17:49)
[2018-10-24] MEDS: LACTOBACILLUS RHAMNOSUS CAP PO ×2 (09:16→20:33)
[2018-10-24] MEDS: APIXABAN 5 MG TABLET PO ×2 (09:16→20:33)
[2018-10-24] MEDS: ASPIRIN (EC) 81 MG TAB PO (09:16)
[2018-10-24] MEDS: MULTIVIT/CA CARB/B CMPLX/FA TAB PO (09:16)
[2018-10-24] MEDS ORDERED: BISACODYL 10 MG SUPP PR (16:30)
[2018-10-24] MEDS ORDERED: BISACODYL (EC) 5 MG TAB PO (16:30)
[2018-10-24] MEDS: AL HYDROX/MG HYDROX/SIMETH 30 ML CUP PO (17:41)
[2018-10-24] MEDS: ERTAPENEM SODIUM 0.5 GM in SOD CHLORIDE 0.9% 100 ML IVPB (17:43)
[2018-10-24] MEDS: CINACALCET 30 MG TAB PO (20:33)
[2018-10-24] MEDS: ATORVASTATIN 40 MG TAB PO (20:34)
[2018-10-24] MEDS: VANCOMYCIN 1 GM 250 ML IVPB (20:35)
[2018-10-25 06:05] LABS: ADD MAN DIFF? NO
[2018-10-25 06:09] LABS: ABNORMAL IP MESSAGE 1; BASOPHIL # 0.1 10^3/ul (0.0-0.1); BASOPHILS % 0.7 % (0.0-2.0); EOSINOPHILS # 0.2 10^3/ul (0.0-0.5); EOSINOPHILS % 2.2 % (0.0-7.0); HEMATOCRIT 34.9 % (42.0-52.0); HEMOGLOBIN 11.2 g/dl (14.0-18.0); LYMPHOCYTES # 0.5 10^3/ul (0.8-2.9); MEAN CORPUSCULAR HEMOGLOBIN 28.8 pg (29.0-33.0); MEAN CORPUSCULAR HGB CONC 32.1 g/dl (32.0-37.0); MEAN CORPUSCULAR VOLUME 89.7 fl (82.0-101.0); MEAN PLATELET VOLUME 10.1 fl (7.4-10.4); MONOCYTE # 0.6 10^3/ul (0.3-0.9); MONOCYTES % 8.1 % (0.0-11.0); NEUTROPHIL # 5.5 10^3/ul (1.6-7.5); NEUTROPHILS % 81.3 % (39.0-77.0); PLATELET COUNT 291 10^3/UL (140-415); POSITIVE DIFF @See below; RED BLOOD COUNT 3.89 10^6/ul (4.70-6.10); RED CELL DISTRIBUTION WIDTH 18.3 % (11.5-14.5)
[2018-10-25 06:09] LABS: WHITE BLOOD COUNT 6.8 10^3/ul (4.8-10.8)
[2018-10-25] MEDS: PANTOPRAZOLE (EC) 40 MG TAB PO (06:26)
[2018-10-25 06:52] LABS: FREE T4 (FREE THYROXINE) 1.05 ng/dl (0.64-1.79)
[2018-10-25 07:07] LABS: TRIIODOTHYRONINE 0.79 ng/ml (0.97-1.69)
[2018-10-25 08:38] LABS: ANION GAP 11 (5-13); BLOOD UREA NITROGEN 38 mg/dl (7-20); CALCIUM 8.7 mg/dl (8.4-10.2); CARBON DIOXIDE 24 mmol/L (21-31); CHLORIDE 96 mmol/L (97-110); CREATININE 4.85 mg/dl (0.61-1.24); Estimated GFR 13 mL/min (>60); GLUCOSE 89 mg/dl (70-220); SODIUM 131 mmol/L (135-144)
[2018-10-25] MEDS: LACTOBACILLUS RHAMNOSUS CAP PO ×2 (09:17→21:38)
[2018-10-25] MEDS: MULTIVIT/CA CARB/B CMPLX/FA TAB PO (09:17)
[2018-10-25] MEDS: APIXABAN 5 MG TABLET PO ×2 (09:17→21:38)
[2018-10-25] MEDS: SEVELAMER CARBONATE 800 MG TABLET PO ×3 (09:17→17:17)
[2018-10-25] MEDS: ASPIRIN (EC) 81 MG TAB PO (09:18)
[2018-10-25] MEDS: HYDROCODONE/APAP (5/325) TAB PO ×2 (16:40→21:39)
[2018-10-25] MEDS: ERTAPENEM SODIUM 0.5 GM in SOD CHLORIDE 0.9% 100 ML IVPB (16:41)
[2018-10-25] MEDS: CINACALCET 30 MG TAB PO (21:38)
[2018-10-25] MEDS: ATORVASTATIN 40 MG TAB PO (21:38)
[2018-10-26 06:21] LABS: ADD MAN DIFF? NO
[2018-10-26 06:23] LABS: WHITE BLOOD COUNT 6.4 10^3/ul (4.8-10.8)
[2018-10-26 06:23] LABS: ABNORMAL IP MESSAGE 1; BASOPHIL # 0.1 10^3/ul (0.0-0.1); BASOPHILS % 0.9 % (0.0-2.0); EOSINOPHILS # 0.2 10^3/ul (0.0-0.5); HEMATOCRIT 36.3 % (42.0-52.0); HEMOGLOBIN 11.6 g/dl (14.0-18.0); LYMPHOCYTES # 0.5 10^3/ul (0.8-2.9); LYMPHOCYTES % 7.8 % (15.0-51.0); MEAN CORPUSCULAR HEMOGLOBIN 28.9 pg (29.0-33.0); MEAN CORPUSCULAR VOLUME 90.5 fl (82.0-101.0); MEAN PLATELET VOLUME 9.8 fl (7.4-10.4); MONOCYTE # 0.6 10^3/ul (0.3-0.9); MONOCYTES % 9.6 % (0.0-11.0); NEUTROPHILS % 77.9 % (39.0-77.0); PLATELET COUNT 275 10^3/UL (140-415); POSITIVE DIFF @See below; RED BLOOD COUNT 4.01 10^6/ul (4.70-6.10); RED CELL DISTRIBUTION WIDTH 18.5 % (11.5-14.5)
[2018-10-26] MEDS: PANTOPRAZOLE (EC) 40 MG TAB PO (06:23)
[2018-10-26 06:48] LABS: ANION GAP 13 (5-13); BLOOD UREA NITROGEN 31 mg/dl (7-20); CALCIUM 8.4 mg/dl (8.4-10.2); CARBON DIOXIDE 25 mmol/L (21-31); CHLORIDE 95 mmol/L (97-110); CREATININE 4.43 mg/dl (0.61-1.24); Estimated GFR 15 mL/min (>60); GLUCOSE 86 mg/dl (70-220); POTASSIUM 4.8 mmol/L (3.5-5.1); SODIUM 133 mmol/L (135-144)
[2018-10-26] MEDS: HYDROCODONE/APAP (5/325) TAB PO ×3 (08:59→21:17)
[2018-10-26] MEDS: MULTIVIT/CA CARB/B CMPLX/FA TAB PO (08:59)
[2018-10-26] MEDS: ASPIRIN (EC) 81 MG TAB PO (09:00)
[2018-10-26] MEDS: APIXABAN 5 MG TABLET PO ×2 (09:01→21:04)
[2018-10-26] MEDS: SEVELAMER CARBONATE 800 MG TABLET PO ×3 (09:01→16:26)
[2018-10-26] MEDS: LACTOBACILLUS RHAMNOSUS CAP PO ×2 (09:01→21:04)
[2018-10-26] MEDS: LIDOCAINE 1% (MPF) 5 ML VIAL SC (14:50)
[2018-10-26] MEDS: ERTAPENEM SODIUM 0.5 GM in SOD CHLORIDE 0.9% 100 ML IVPB (16:26)
[2018-10-26] MEDS: CINACALCET 30 MG TAB PO (21:04)
[2018-10-26] MEDS: ATORVASTATIN 40 MG TAB PO (21:04)
== END 2018-10-26 22:36 | disposition home or self-care (01) | DRG 871 ==
LOC: TEL 12:22 → E/R 08:44 → TEL 10:39
PROC: 5A1D70Z Performance of Urinary Filtration, Intermittent, Less than 6 Hours Per Day (ICD-10-PCS; 2018-10-17)
PROC: 5A1D70Z Performance of Urinary Filtration, Intermittent, Less than 6 Hours Per Day (ICD-10-PCS; 2018-10-18)
PROC: 5A1D70Z Performance of Urinary Filtration, Intermittent, Less than 6 Hours Per Day (ICD-10-PCS; 2018-10-20)
PROC: 5A1D70Z Performance of Urinary Filtration, Intermittent, Less than 6 Hours Per Day (ICD-10-PCS; 2018-10-22)
PROC: 5A1D70Z Performance of Urinary Filtration, Intermittent, Less than 6 Hours Per Day (ICD-10-PCS; 2018-10-23)
PROC: 5A1D70Z Performance of Urinary Filtration, Intermittent, Less than 6 Hours Per Day (ICD-10-PCS; 2018-10-24)
PROC: 02HV33Z Insertion of Infusion Device into Superior Vena Cava, Percutaneous Approach (ICD-10-PCS; principal; 2018-10-26)
PROC: B548ZZA Ultrasonography of Superior Vena Cava, Guidance (ICD-10-PCS; 2018-10-26)
PROC: 5A1D70Z Performance of Urinary Filtration, Intermittent, Less than 6 Hours Per Day (ICD-10-PCS; 2018-10-26)
DX: A41.9 Sepsis, unspecified organism (principal); N18.6 End stage renal disease; I50.23 Acute on chronic systolic (congestive) heart failure; K65.2 Spontaneous bacterial peritonitis; I13.2 Hypertensive heart and chronic kidney disease with heart failure and with stage 5 chronic kidney disease, or end stage renal disease; I42.9 Cardiomyopathy, unspecified; R18.8 Other ascites; E87.1 Hypo-osmolality and hyponatremia; L03.116 Cellulitis of left lower limb; I95.9 Hypotension, unspecified; I07.1 Rheumatic tricuspid insufficiency; I27.20 Pulmonary hypertension, unspecified; I48.2 Chronic atrial fibrillation; K76.1 Chronic passive congestion of liver; B96.20 Unspecified Escherichia coli [E. coli] as the cause of diseases classified elsewhere; I34.0 Nonrheumatic mitral (valve) insufficiency; D72.829 Elevated white blood cell count, unspecified; D64.9 Anemia, unspecified; K42.9 Umbilical hernia without obstruction or gangrene; E78.5 Hyperlipidemia, unspecified; I45.4 Nonspecific intraventricular block; Z99.2 Dependence on renal dialysis; Z79.82 Long term (current) use of aspirin; Z79.02 Long term (current) use of antithrombotics/antiplatelets
CPT/HCPCS: 36415; 36569; 71045; 73610; 76937; 80048; 80053; 80076; 80202; 82550; 82553; 82607; 83036; 83605; 83690; 83735; 84100; 84439; 84443; 84480; 84484; 85025; 85610; 85730; 87040; 90935; 93005; 93306; 93971; 96365; 96375; 97110; 97116; 97161; 97530; 99285-25